=== PATIENT | male | born 1965 | race Caucasian/White ===

== ENCOUNTER → 2019-09-11 14:17 | Outpatient (BNVA) | payer MEDICARE, MEDICAID, SELFPAY | PROVIDERS: Family Provider Family Medicine; PCP Family Medicine; Visit Provider Family Medicine | DX: Z13.1 Encounter for screening for diabetes mellitus (principal); Z13.220 Encounter for screening for lipoid disorders; Z13.6 Encounter for screening for cardiovascular disorders; R06.02 Shortness of breath; G89.4 Chronic pain syndrome; J30.9 Allergic rhinitis, unspecified; F32.9 Major depressive disorder, single episode, unspecified; K21.9 Gastro-esophageal reflux disease without esophagitis; B37.81 Candidal esophagitis | CPT/HCPCS: 71046; 80048; 80061; 85025 ==

== ENCOUNTER → 2019-09-29 15:04 | Outpatient (BNVA) | payer MEDICARE, MEDICAID, SELFPAY | PROVIDERS: Family Provider Family Medicine; PCP Family Medicine; Visit Provider Nurse Practitioner | DX: G89.4 Chronic pain syndrome (principal); M54.2 Cervicalgia; F17.210 Nicotine dependence, cigarettes, uncomplicated; Z79.891 Long term (current) use of opiate analgesic; Z71.6 Tobacco abuse counseling | CPT/HCPCS: 99213; 99214 ==

== ENCOUNTER 2019-12-14 21:40 | Emergency (ER) | payer MEDICARE, MEDICAID, SELFPAY ==
[2019-12-14] VITALS (20 sets, daily range): BP systolic 105–148; BP diastolic 66–102; PULSE 78–87; RESP 14–20; TEMP 36.2; O2SAT 94–98; BMI 24.7
--- NOTE | 2019-12-14 21:59 | US_ITS ---
WS: [id number] SCROTAL ULTRASOUND REASON FOR EXAM: Testicular pain COMPARISON: None available. TECHNIQUE: Grayscale and duplex color Doppler ultrasound examination of the scrotum. FINDINGS: RIGHT: Right testes measures 3.5 cm x 1.4 cm x 2.1 cm. Right epididymis measures 0.9 cm , LEFT: Left testes measures 3.8 cm x 1.6 cm x 2.0 cm. Left epididymis measures 0.9 cm . Both inguinal canals were evaluated showed no bowel in the canals and no hernias. US/US scrotum [id number] IMPRESSION: Negative testicular ultrasound study.
--- NOTE | 2019-12-14 22:01 | CTR_ITS ---
PROCEDURE INFORMATION: Exam: CT Abdomen And Pelvis Without Contrast Exam date and time: 12/14/2019 10:01 PM Age: 54 years old Clinical indication: Abdominal pain; Flank; Right; Prior surgery; Patient HX: RT low abd pain, hole in abd where hernia mesh was placed in 2002; Additional info: Flank/abdominal pain TECHNIQUE: Imaging protocol: Computed tomography of the abdomen and pelvis without contrast. Sagittal and coronal reformatted images were created and reviewed. Radiation optimization: All CT scans at this facility use at least one of these dose optimization techniques: automated exposure control; mA and/or kV adjustment per patient size (includes targeted exams where dose is matched to clinical indication); or iterative reconstruction. COMPARISON: CT abdomen pelvis w con* [id number] 02/07/2016 12:02 PM RADIATION DOSE METRICS: Total DLP: 1106.74 mGy-cm FINDINGS: Limitations: Evaluation of solid organs and vasculature is limited without intravenous contrast. Heart: Visualized portions of the heart are unremarkable. Lungs: [id number] centrilobular and mild paraseptal emphysematous changes in the visualized lower lungs. Findings are stable. There is linear scarring in the right lower lobe. Pleural space: No pleural effusion. Liver: Diffuse, moderately decreased density in the liver. Findings are consistent with moderate fatty infiltration. Gallbladder and bile ducts: The patient has had an interval cholecystectomy. No biliary ductal dilatation. Pancreas: The pancreas is unremarkable. No pancreatic ductal dilatation. Spleen: Stable calcified granuloma in the spleen. Adrenals: The right and left adrenal glands are unremarkable. Kidneys and ureters: The right and left kidneys are unremarkable. The right and left ureters are unremarkable. Stomach and bowel: Fatty infiltration of the wall of the the terminal ileum and virtually the entire colon. Findings are stable and suggest suggest sequela of chronic inflammation. Fluid within the small bowel without evidence of mesenteric lymphadenopathy or bowel wall thickening. Appendix: The appendix is visualized and is unremarkable. No findings to suggest acute appendicitis. Intraperitoneal space: No free intraperitoneal air. No ascites. No loculated fluid collections to suggest an abscess. Vasculature: Stable mild atherosclerotic calcifications in the visualized arteries. No evidence for aortic aneurysm. Lymph nodes: No lymphadenopathy. Bladder: The bladder is incompletely filled, which can limit evaluation. No focal abnormality in the bladder however. Reproductive: Unremarkable as visualized. Bones/joints: Mild degenerative changes in the visualized spine. Soft tissues: No acute abnormality in the extra-abdominal soft tissues. No evidence for a hernia. CT/CT kidney stone [id number] IMPRESSION: 1. Fluid within the small bowel without evidence of mesenteric lymphadenopathy or bowel wall thickening. This may reflect viral gastroenteritis in the appropriate clinical situation. 2. Moderate fatty infiltration of the liver. 3. The patient has had an interval cholecystectomy. 4. Incidental/nonacute findings are listed in the report. Radiation Dose CTDIVOL = (mGy): DLP = 1106.74 (mGy-cm)
--- NOTE | 2019-12-14 22:02 | ED_ITS ---
HPI - Abdominal Pain General: Chief Complaint: Abdominal Pain Stated Complaint: abd pain Time Seen by Provider: 12/14/19 21:52 History of Present Illness: HPI narrative: Aditya is a nice 54-year-old male who comes in complaining of right inguinal and testicular pain. The pain is been intermittent for the past 3 days but worsening. He denies any fevers or chills. Denies any nausea or vomiting. He denies any dysuria or hematuria. He states that he had hernia repair in 2002 and previously he had felt an area of scar tissue in the area involved but now he does not feel it and that is the area that is tender. He is unaware of anything that makes his pain better or worse. He states that he has had kidney stones in the past but they did not feel exactly like this. Associated Symptoms: Denies chills, coffee ground emesis, constipation, GI cramping, diarrhea, dysuria, fever(s), hematochezia, hematuria, hematemesis, melena, nausea, syncope and vomiting Review of Systems General: Reports: other (negative unless marked) Const: Denies: fever, chills, body aches, fatigue, malaise or diaphoresis Eyes: Denies: change in vision or blurry vision ENMT: Denies: throat pain, painful swallowing, hoarseness, ear pain, ear discharge, Change in hearing or nasal discharge Card: Denies: chest pain, palpitations, irregular heart rhythm, syncope, pre- syncope, shortness of breath on exertion or shortness of breath when lying down Resp: Denies: shortness of breath, productive cough, non-productive cough, wheezing, coughing up blood or chest congestion GI: Reports: abdominal pain; Denies: nausea, vomiting, vomiting blood, coffee grounds in vomit, diarrhea, constipation, cramping, blood in stool or black tarry stool : Denies: flank pain, difficulty urinating, painful urination, urinary frequency, urinary urgency, decreased urine ouput, urinary incontinence or blood in urine Musc: Denies: neck pain, back pain, extremity pain, extremity swelling, joint pain, joint swelling, joint warmth or joint stiffness Skin/Breast: Denies: rash, skin tenderness or yellow skin Neuro: Denies: headache, numbness in extremities, weakness in extremities, changes in sensation, lack of coordination, difficulty walking, dizziness, vertigo or confusion Endo: Denies: excessive thirst, tired all the time, cold intolerance, excessive sweating, flushing or hot flashes Tony/Lymph: Denies: easy bruising, easy bleeding, petechiae or enlarged lymph nodes All/Imm: Denies: hives, throat swelling, tongue swelling, facial swelling or acute wheezing PFSH ED PFSH: Medical History Allergic rhinitis Chronic migraine Chronic pain syndrome DDD (degenerative disc disease) Cervical and Lumbar Depression Encounter for long-term opiate analgesic use GERD without esophagitis Kidney stones Lumbar herniated disc Opioid contract exists Smoker SOB (shortness of breath) Surgical History H/O cervical discectomy H/O foot surgery H/O neck surgery Hx of cholecystectomy Hx of hernia repair using mesh Family History Mother Hypertension Dementia Brother Hypertension Dementia Grandmother Hypertension Dementia Family/Other Dementia Social History Smoking and tobacco status: current every day smoker cigarettes [ Other cigarette details: 1.5 PPD ] Alcohol intake: current Alcohol intake frequency: holidays/special occasions only History of recent travel: No Current gender identity: Male Physical Exam Const: COMMON NORMALS: no apparent distress, oriented x3, no limitations, healthy appearing and well nourished EXAM LIMITATIONS: no altered mental status GENERAL APPEARANCE: cooperative, well kempt and well developed ORIENTATION/CONSCIOUSNESS: Yes awake HENMT: COMMON NORMALS: normocephalic, head/scalp atraumatic, hearing grossly normal bilaterally, external ears normal, EAC's normal, external nose normal and moist oral mucous membranes HEAD & SCALP: normal to inspection, normocephalic and atraumatic FACE & SINUS: normal facial exam and face symmetric NOSE: external nose normal and nares normal EXTERNAL EAR: Yes external ears normal EXTERNAL AUDITORY CANAL: EAC's normal MOUTH: oral and palatal mucosa normal and tongue normal Eye: COMMON NORMALS: PERRL, EOMs intact bilaterally, conjunctivae normal and no scleral icterus GENERAL EYE: normal appearance of both eyes and normal light reflex CONJUNCTIVA: Yes conjunctivae normal SCLERA: sclerae normal CORNEA: Yes corneas normal PUPIL: Yes PERRL DIRECT OPHTHALMOSCOPY: Yes normal light reflex Neck/C-Spine: COMMON NORMALS: full ROM, no lymphadenopathy, supple, no meningeal signs and no JVD GENERAL: Yes normal visual inspection and Yes trachea midline CERVICAL SPINE: Yes cervical ROM normal Chest: COMMONS NORMALS: inspection of chest normal and palpation of chest normal Resp: COMMON NORMALS: normal respiratory effort, no retractions, no use of accessory muscles and clear to auscultation bilaterally EFFORT & INSPECTION: Yes able to speak in complete sentences AUSCULTATION: clear to auscultation bilaterally Cardio: COMMON NORMALS: no JVD, regular rate, regular rhythm, S1 normal heart sound, S2 normal heart sound, no gallops, no clicks, no murmurs and no rub JUGULAR VENOUS DISTENTION: no JVD RATE: regular rate RHYTHM: regular rhythm HEART SOUNDS: S1 normal and S2 normal GI: COMMON NORMALS: soft to palpation, non-tender, no hepatosplenomegaly and no masses INSPECTION: Yes normal to inspection PALPATION: Yes soft and Yes no hepatosplenomegaly : COMMON NORMALS: Yes no CVA tenderness BLADDER/KIDNEY EXAM: Yes no CVA tenderness PENIS: normal penis and circumcised SCROTUM: Yes testes descended bilaterally, Yes cremasteric reflex present, No erythematous, No ecchymosis and No scrotal swelling TESTES: Yes testicular lie normal, No testicular tenderness, Yes epididymides normal, No epididymal mass and No epididymal tenderness OTHER: Right inguinal area without any swelling or hernia palpated Back/Pelvis: COMMON NORMALS: no CVA tenderness, thoracic and lumbar spine normal to inspection, no thoracic nor lumbar tenderness and thoraco-lumbar ROM normal Extremity: COMMON NORMALS: normal to inspection, full ROM, normal capillary refill, no joint enlargement, no clubbing, cyanosis or edema and no calf tenderness Neuro: COMMON NORMALS: oriented x3, CN's II-XII intact bilaterally, moves all extremities, no focal motor deficits and no sensory deficits noted MENINGEAL SIGNS: Yes no meningeal signs Psych: COMMON NORMALS: mental status grossly normal, thought process normal, cooperative, affect normal, speech normal and activity/motor behavior normal APPEARANCE: Yes well kempt SPEECH: Yes normal speech THOUGHT PROCESS: normal thought process Skin: COMMON NORMALS: no rashes or lesions noted, skin turgor normal, no jaundice, no petechiae and no mottling GENERAL SKIN EXAM: no rashes or lesions noted and turgor normal Course Vital Signs: Vital signs: Vital Signs Temperature 97.1 F L 12/14/19 21:46 Pulse Rate 87 12/14/19 21:46 Respiratory Rate 20 H 12/14/19 23:41 Blood Pressure 128/90 12/14/19 23:30 Pulse Oximetry 95 12/14/19 23:41 MDM - Abdominal Pain MDM Narrative: Medical decision making narrative: Mr. Dozier is a nice 54-year-old male who comes in complaining of mostly right inguinal pain. His appendix is normal by CT and there is no evidence of kidney stone. CT did suggest a gastroenteritis type picture which may be a possibility but does not fit clinically. There is no evidence of hernia by ultrasound or palpation nor on the CT. The patient's ultrasound revealed a normal testicle with no evidence of torsion or epididymitis. This time I will go ahead and place the patient on Cipro and Flagyl for a gastroenteritis and have him follow-up with surgery for a possible tear of his mesh. The patient agrees to follow-up for this. He understands that this could be something early and he will need to return if his symptoms change or worsen. At this time he is feeling good with normal labs and reassuring scans and ultrasound so I will discharge the patient home. He does understand he needs to return if his symptoms worsen but at this time he is feeling much better and would like to go home. Lab Data: Attestation: I reviewed the patient's lab results. Labs: Lab Results 12/14/19 12/14/19 12/14/19 Range/Units 22:00 22:00 22:10 WBC 9.5 (4.0-10.0) 10^3/ uL RBC 5.15 (4.1-5.3) 10^6/u L Hgb 16.5 (11.7-16.6) g/dL Hct 48.6 (42.0-52.0) % MCV 94.4 H (80-94) fL MCH 32.0 (28.0-34.0) pg MCHC 34.0 (30.0-36.0) g/dL RDW 13.2 (12.1-15.1) % Plt Count 243 (130-400) 10^3/c mm MPV 11.4 H (7.4-10.4) fL Neut % (Auto) 42.9 % Lymph % (Auto) 47.9 % Whitman % (Auto) 5.5 % Eos % (Auto) 2.0 % Baso % (Auto) 1.5 % Neut # (Auto) 4.1 (1.8-7.7) 10^3/u L Lymph # (Auto) 4.5 (0.8-4.8) 10^3/u L Whitman # (Auto) 0.5 (0.2-0.9) 10^3/u L Eos # (Auto) 0.2 (0.0-0.8) 10^3/u L Baso # (Auto) 0.1 (0.0-0.1) 10^3/u L Nucleated RBC % (a uto) 0 % Nucleated RBCs # 0.0 /100WBC Sodium 143 (136-145) mmol/L Potassium 4.0 (3.5-5.1) mmol/L Chloride 105 (98-107) mmol/L Carbon Dioxide 26 (22-29) mmol/L Anion Gap 16.0 (5-19) BUN 7 (6-20) mg/dL Creatinine 1.1 (0.7-1.2) mg/dL GFR Calculation 69.8 L (90-130) mL/min Glucose 104 (65-115) mg/dL Calculated Osmolal ity 292 (285-295) mOsm/k g Calcium 10.4 (8.5-10.5) mg/dL Magnesium 2.1 (1.7-2.3) mg/dL Total Bilirubin 0.3 (0.15-1.2) mg/dL AST 27 (0-40) U/L ALT 33 (0-41) U/L Alkaline Phosphata se 106 (40-130) IU/L Total Protein 7.6 (6.6-8.7) g/dL Albumin 4.8 (3.5-5.2) g/dL Globulin 2.8 (1.3-4.6) g/dL Lipase 52 (13-60) U/L Urine Color Yellow (Yellow) Urine Appearance Clear (CLEAR) Urine pH 5 (5-7) Ur Specific Gravit y 1.010 (1.005-1.030) Urine Protein Neg (Negative) Urine Glucose (UA) Norm (Normal) Urine Ketones Negative (Negative) Urine Blood Neg (Negative) Urine Nitrate Negative (Negative) Urine Bilirubin Neg (NEGATIVE) Urine Urobilinogen Norm (Negative) mg/dL Ur Leukocyte Macey ase Negative (Negative) Urine RBC Rare (0-2) /hpf Urine WBC Rare (0-5) /hpf Ur Squamous Epith Cells Rare (0-5) Urine Bacteria Trace (NONE) Discharge Plan Discharge Patient Disposition: Home, Self-Care Clinical Impression: Rt inguinal pain, Abdominal pain, Testicular pain Condition: Stable Prescriptions: New ciprofloxacin HCl [Cipro] 500 mg tablet 500 mg PO BID Qty: 20 RF: 0 metronidazole [Flagyl] 500 mg tablet 500 mg PO Q8H 7 Days Qty: 21 RF: 0 No Action [id number] [Fioricet] 50-300-40 mg capsule 1 cap PO .COMPLEX PRNRF: 0 tizanidine 4 mg tablet 4 mg PO TID PRN (Reason: muscle spasticity) 30 Days Qty: 90 RF: 5 cyclobenzaprine 10 mg tablet 10 mg PO .at bedtime 30 Days Qty: 30 RF: 5 pantoprazole 40 mg tablet,delayed release (DR/EC) 40 mg PO DAILY 30 Days Qty: 30 RF: 5 montelukast 10 mg tablet 10 mg PO DAILY 30 Days Qty: 30 RF: 11 Zyrtec 10 mg capsule 10 mg PO DAILY 30 Days Qty: 30 RF: 11 celecoxib 200 mg capsule 200 mg PO DAILY 30 Days Qty: 30 RF: 5 amitriptyline 25 mg tablet 25 mg PO .at bedtime 30 Days Qty: 30 RF: 5 albuterol sulfate 90 mcg/actuation HFA aerosol inhaler 2 puff INHALATION Q6H 30 Days Qty: 18 RF: 5 hydrocodone-acetaminophen 10-325 mg tablet 1 tab PO TID PRN (Reason: pain) 30 Days Qty: 90 RF: 0 ibuprofen 200 mg tablet 200 mg PO ONCE PRNRF: 0 hydrocodone-acetaminophen 10-325 mg tablet 1 tab PO TID PRN (Reason: pain) 30 Days Qty: 90 RF: 0 Discharge Orders: Discharge Order (Routine); Ordered 12/14/19 Ordered By: Nola Rani Referrals: Henny Lara MD [Primary Care Provider] - 1-3 days Marcello Ayon MD [Physician] - 1-3 days Discharge Diet: Advance as tolerated Discharge Activity: Increase activity as tolerated Patient Instructions: Abdominal Pain (ED) Activity Restrictions/Additional Instructions: Please return to the ER immediately for any of the signs or symptoms listed on your discharge instruction sheets, worsening/changing of your symptoms, you are not getting better as quickly as expected, or for ANY other cause or concerns. Take the antibiotics as I have prescribed you. Stop your tizanidine until you are finished taking your Cipro. There may be a drug interaction with these medications so be certain to STOP YOUR TIZANIDINE UNTIL YOU HAVE FINISHED YOUR CIPRO. Return to the ER for increased pain, new onset of fever, new onset of vomiting, problems with your bowels, increased testicular pain, or for any other cause for concern. If you are still having pain after 12 hours return to the ER for recheck because developing appendicitis may be a cause for your pain. Coding Level of Care Code ED Web Content Editor for Sabino Fwd Exam Comprehensive
[2019-12-14 22:25] LABS: Basophils # 0.1 10^3/uL (0.0-0.1); Basophils % 1.5 %; Eosinophils # 0.2 10^3/uL (0.0-0.8); Hematocrit 48.6 % (42.0-52.0); Hemoglobin 16.5 g/dL (11.7-16.6); Lymphocytes # 4.5 10^3/uL (0.8-4.8); Lymphocytes % 47.9 %; Mean Corpuscular Volume 94.4 fL (80-94); Mean Platelet Volume 11.4 fL (7.4-10.4); Monocytes # 0.5 10^3/uL (0.2-0.9); Monocytes % 5.5 %; Neutrophils # 4.1 10^3/uL (1.8-7.7); Neutrophils % 42.9 %; Nucleated Red Blood Cells % 0 %; Platelet Count 243 10^3/cmm (130-400); Red Blood Count 5.15 10^6/uL (4.1-5.3); Red Cell Distribution Width 13.2 % (12.1-15.1); White Blood Count 9.5 10^3/uL (4.0-10.0)
[2019-12-14] MEDS: ondansetron 2 mg/ML SDV 2 mL 4 MG IVP (22:35)
[2019-12-14] MEDS: HYDROmorphone 1 mg/mL INJ 1 mL 0.5 MG IVP ×2 (22:36→23:41)
[2019-12-14] MEDS: sodium chloride 0.9% 1,000 ML 100 ML IV (22:37)
[2019-12-14 23:06] LABS: Bacteria Urine TRACE; Bilirubin Urine Neg (NEGATIVE); Blood Urine Neg (Negative); Glucose Urine UA Norm (Normal); Ketones Urine Negative (Negative); Leukocyte Esterase Urine Negative (Negative); Nitrate Urine Negative (Negative); Protein Urine Neg (Negative); RBC Urine RARE /hpf (0-2); Squamous Epithelial Cell Urine RARE (0-5); Urine Appearance Clear (CLEAR); Urine Color Yellow (Yellow); Urobilinogen Urine Norm (Negative); WBC Urine RARE /hpf (0-5); pH Urine 5 (5-7)
[2019-12-14 23:26] LABS: Alanine Aminotransferase 33 U/L (0-41); Albumin Level 4.8 g/dL (3.5-5.2); Alkaline Phosphatase 106 IU/L (40-130); Aspartate Amino Transferase 27 U/L (0-40); Blood Urea Nitrogen 7 mg/dL (6-20); Calcium 10.4 mg/dL (8.5-10.5); Carbon Dioxide 26 mmol/L (22-29); Chloride 105 mmol/L (98-107); Globulin 2.8 g/dL (1.3-4.6); Glomerular Filtration Rate 69.8 mL/min (90-130); Glucose 104 mg/dL (65-115); Lipase 52 U/L (13-60); Magnesium 2.1 mg/dL (1.7-2.3); Osmolality Calculated 292 mOsm/kg (285-295); Sodium 143 mmol/L (136-145); Total Bilirubin 0.3 mg/dL (0.15-1.2); Total Protein 7.6 g/dL (6.6-8.7)
[2019-12-14] MEDS: ciprofloxacin 500 mg Tablet PO (23:58)
[2019-12-14] MEDS: metroNIDAZOLE 500 MG Tablet PO (23:58)
== END 2019-12-15 00:01 | disposition home or self-care (01) ==
PROVIDERS: Emergency Provider Emergency Medicine; PCP Family Medicine
DX: N50.811 Right testicular pain (principal); R10.31 Right lower quadrant pain; F17.210 Nicotine dependence, cigarettes, uncomplicated
CPT/HCPCS: 12345; 74176; 76870; 80053; 81001; 83690; 83735; 85025; 96361; 96374; 96375; 96376; 99283; 99284; J1170; J2405; J7030

== ENCOUNTER → 2020-01-18 12:41 | Outpatient (BNVA) | payer MEDICARE, MEDICAID, SELFPAY | PROVIDERS: PCP Family Medicine; Visit Provider Anesthesiology Pain Medicine | DX: G89.4 Chronic pain syndrome (principal); M51.36 Other intervertebral disc degeneration, lumbar region; M79.18 Myalgia, other site; M54.2 Cervicalgia; F17.210 Nicotine dependence, cigarettes, uncomplicated; Z79.891 Long term (current) use of opiate analgesic | CPT/HCPCS: 20553; 99214; J1030; J3490 ==

== ENCOUNTER 2020-02-08 15:00 | Outpatient (CLI) | payer MEDICARE, MEDICAID, SELFPAY ==
--- NOTE | 2020-02-08 15:20 | MR_ITS ---
WS: [id number] MRI CERVICAL SPINE HISTORY: M51.36 Other intervertebral disc degeneration, lumbar region COMPARISON: 05/24/2017 Prior anterior cervical fusion with interbody spacer at C5-6 is stable. No acute fractures. Mild disc space narrowing and desiccation at C4-5 and C6-7. Signal within the cervical cord is normal. Visualized posterior fossa is unremarkable. Craniocervical junction, C1 and C2 relationship, odontoid process and soft tissues are normal. C2-C3: Normal. C3-C4: Small central disc protrusion with no cord contact or stenosis. C4-C5: Mild osteophytic ridging and a central disc protrusion. 2 mm retrolisthesis of C4 is unchanged . There is very mild encroachment upon the ventral thecal sac and foramen. 3 mm osteophytes from C4 p roject into the foramen contributing to the stenosis. Unchanged since the prior study. C5-C6: Very some minimal osteophytic ridging. No significant stenosis. C6-C7: Diffuse osteophytic ridging with a central disc protrusion. Mild central stenosis and bilatera l foraminal stenosis with mild facet joint arthritis. C7-T1: Very tiny central disc protrusion. Paraspinal soft tissue are normal. MR/MR cervical spin wo con* [id number] IMPRESSION: 1. No significant interval change in the cervical spine since 05/24/2017. 2. Prior anterior cervical fusion with interbody spacer at C5-6 is stable. 3. Mild central and bilateral foraminal stenosis at C4-5 and C6-7. 4. C4 retrolisthesis by 2 mm is unchanged. 5. Small central disc protrusions at C3-4, C4-5 and C6-7 and C7-T1.
== END 2020-02-08 15:01 | disposition home or self-care (01) ==
LOC: RADWPI 15:03
PROVIDERS: PCP Family Medicine; Visit Provider Anesthesiology Pain Medicine
DX: M51.36 Other intervertebral disc degeneration, lumbar region (principal); M43.22 Fusion of spine, cervical region; M48.02 Spinal stenosis, cervical region; M50.20 Other cervical disc displacement, unspecified cervical region
CPT/HCPCS: 72141

== ENCOUNTER → 2020-02-16 12:33 | Outpatient (BNVA) | payer MEDICARE, MEDICAID, SELFPAY | PROVIDERS: PCP Family Medicine; Visit Provider Anesthesiology Pain Medicine | DX: G89.4 Chronic pain syndrome (principal); M50.30 Other cervical disc degeneration, unspecified cervical region; M51.36 Other intervertebral disc degeneration, lumbar region; F17.210 Nicotine dependence, cigarettes, uncomplicated; Z79.891 Long term (current) use of opiate analgesic | CPT/HCPCS: 62321; 99213; 99214; J1100 ==

== ENCOUNTER → 2020-03-18 10:19 | Outpatient (BNVA) | payer MEDICARE, MEDICAID, SELFPAY | PROVIDERS: PCP Family Medicine; Visit Provider Anesthesiology Pain Medicine | DX: G89.4 Chronic pain syndrome (principal); M79.18 Myalgia, other site; M51.36 Other intervertebral disc degeneration, lumbar region; M48.02 Spinal stenosis, cervical region; Z79.891 Long term (current) use of opiate analgesic; F17.210 Nicotine dependence, cigarettes, uncomplicated | CPT/HCPCS: 20553; 99214; J1030; J3490 ==

== ENCOUNTER → 2020-04-11 08:30 | Outpatient (BNVA) | payer MEDICARE, MEDICAID, SELFPAY | PROVIDERS: PCP Family Medicine; Visit Provider Anesthesiology Pain Medicine | DX: G89.4 Chronic pain syndrome (principal); M54.2 Cervicalgia; G43.709 Chronic migraine without aura, not intractable, without status migrainosus; M51.36 Other intervertebral disc degeneration, lumbar region; F17.210 Nicotine dependence, cigarettes, uncomplicated; Z79.891 Long term (current) use of opiate analgesic | CPT/HCPCS: 99213 ==

== ENCOUNTER → 2020-05-13 10:19 | Outpatient (BNVA) | payer MEDICARE, MEDICAID, SELFPAY | PROVIDERS: PCP Family Medicine; Visit Provider Anesthesiology Pain Medicine | DX: G89.4 Chronic pain syndrome (principal); M51.36 Other intervertebral disc degeneration, lumbar region; M54.2 Cervicalgia; F17.210 Nicotine dependence, cigarettes, uncomplicated; Z79.891 Long term (current) use of opiate analgesic | CPT/HCPCS: 99213 ==

== ENCOUNTER → 2020-06-14 10:00 | Outpatient (BNVA) | payer MEDICARE, MEDICAID, SELFPAY | PROVIDERS: PCP Family Medicine; Visit Provider Anesthesiology Pain Medicine | DX: G89.29 Other chronic pain (principal); M54.2 Cervicalgia; M51.36 Other intervertebral disc degeneration, lumbar region; F17.210 Nicotine dependence, cigarettes, uncomplicated; Z79.891 Long term (current) use of opiate analgesic | CPT/HCPCS: 99213 ==

== ENCOUNTER → 2020-07-12 10:35 | Outpatient (BNVA) | payer MEDICARE, MEDICAID, SELFPAY | PROVIDERS: PCP Family Medicine; Visit Provider Anesthesiology Pain Medicine | DX: G89.4 Chronic pain syndrome (principal); M51.36 Other intervertebral disc degeneration, lumbar region; M79.18 Myalgia, other site; G43.709 Chronic migraine without aura, not intractable, without status migrainosus; M54.9 Dorsalgia, unspecified; M54.2 Cervicalgia; F17.210 Nicotine dependence, cigarettes, uncomplicated; Z79.891 Long term (current) use of opiate analgesic | CPT/HCPCS: 20553; 99213; 99214; J1030 ==

== ENCOUNTER → 2020-08-12 10:56 | Outpatient (BNVA) | payer MEDICARE, MEDICAID, SELFPAY | PROVIDERS: PCP Family Medicine; Visit Provider Anesthesiology Pain Medicine | DX: G89.4 Chronic pain syndrome (principal); M54.2 Cervicalgia; M51.36 Other intervertebral disc degeneration, lumbar region; M54.9 Dorsalgia, unspecified; F17.210 Nicotine dependence, cigarettes, uncomplicated; Z79.891 Long term (current) use of opiate analgesic | CPT/HCPCS: 99213 ==

== ENCOUNTER 2020-08-12 14:33 | Outpatient (CLI) | payer MEDICARE, MEDICAID, SELFPAY ==
[2020-08-12 14:52] LABS: Basophils # 0.1 10^3/uL (0.0-0.1); Basophils % 1.5 %; Eosinophils # 0.2 10^3/uL (0.0-0.8); Hematocrit 46.3 % (42.0-52.0); Hemoglobin 15.5 g/dL (11.7-16.6); Lymphocytes % 46.1 %; Mean Corpuscular HGB Conc 33.5 g/dL (30.0-36.0); Mean Corpuscular Hemoglobin 31.8 pg (28.0-34.0); Mean Corpuscular Volume 94.9 fL (80-94); Mean Platelet Volume 11.6 fL (7.4-10.4); Monocytes # 0.6 10^3/uL (0.2-0.9); Monocytes % 6.4 %; Neutrophils # 3.78 10^3/uL (1.8-7.7); Neutrophils % 43.8 %; Nucleated Red Blood Cells % 0 %; Platelet Count 217 10^3/cmm (130-400); Red Blood Count 4.88 10^6/uL (4.1-5.3); Red Cell Distribution Width 12.9 % (12.1-15.1); White Blood Count 8.6 10^3/uL (4.0-10.0)
[2020-08-12 15:16] LABS: Alanine Aminotransferase 40 U/L (0-41); Albumin Level 4.3 g/dL (3.5-5.2); Alkaline Phosphatase 81 IU/L (40-130); Anion Gap 12.6 (5-19); Aspartate Amino Transferase 22 U/L (0-40); Blood Urea Nitrogen 14 mg/dL (6-20); Calcium 9.7 mg/dL (8.5-10.5); Carbon Dioxide 29 mmol/L (22-29); Chloride 103 mmol/L (98-107); Globulin 2.7 g/dL (1.3-4.6); Glomerular Filtration Rate 69.8 mL/min (90-130); Glucose 92 mg/dL (65-115); Lipase 50 U/L (13-60); Osmolality Calculated 290 mOsm/kg (285-295); Potassium 4.6 mmol/L (3.5-5.1); Sodium 140 mmol/L (136-145); Total Bilirubin 0.4 mg/dL (0.15-1.2)
== END 2020-08-12 14:34 | disposition home or self-care (01) ==
LOC: LAB 14:39
PROVIDERS: PCP Family Medicine; Visit Provider Surgery
DX: R10.11 Right upper quadrant pain (principal)
CPT/HCPCS: 36415; 80053; 83690; 85025

== ENCOUNTER → 2020-09-13 10:30 | Outpatient (BNVA) | payer MEDICARE, MEDICAID, SELFPAY | PROVIDERS: PCP Family Medicine; Visit Provider Anesthesiology Pain Medicine | DX: G89.4 Chronic pain syndrome (principal); M79.18 Myalgia, other site; M54.2 Cervicalgia; M51.36 Other intervertebral disc degeneration, lumbar region; M54.9 Dorsalgia, unspecified; F17.210 Nicotine dependence, cigarettes, uncomplicated; Z79.891 Long term (current) use of opiate analgesic | CPT/HCPCS: 20553; 99214; J1030; J3490 ==

== ENCOUNTER → 2020-10-01 13:13 | Outpatient (BNVA) | payer MEDICARE, MEDICAID, SELFPAY | PROVIDERS: PCP Family Medicine; Visit Provider Anesthesiology Pain Medicine | DX: G89.29 Other chronic pain (principal); M54.2 Cervicalgia; F17.210 Nicotine dependence, cigarettes, uncomplicated; Z79.891 Long term (current) use of opiate analgesic | CPT/HCPCS: 62321; J1100 ==

== ENCOUNTER → 2020-10-10 13:53 | Outpatient (BNVA) | payer MEDICARE, MEDICAID, SELFPAY | PROVIDERS: PCP Family Medicine; Visit Provider Anesthesiology Pain Medicine | DX: G89.4 Chronic pain syndrome (principal); M54.2 Cervicalgia; M54.9 Dorsalgia, unspecified; M51.36 Other intervertebral disc degeneration, lumbar region; F17.210 Nicotine dependence, cigarettes, uncomplicated; Z79.891 Long term (current) use of opiate analgesic | CPT/HCPCS: 99213; 99214 ==

== ENCOUNTER → 2020-11-07 13:36 | Outpatient (BNVA) | payer MEDICARE, MEDICAID, SELFPAY | PROVIDERS: PCP Family Medicine; Visit Provider Anesthesiology Pain Medicine | DX: G89.4 Chronic pain syndrome (principal); M54.2 Cervicalgia; M51.36 Other intervertebral disc degeneration, lumbar region; M54.9 Dorsalgia, unspecified; F17.210 Nicotine dependence, cigarettes, uncomplicated; Z79.891 Long term (current) use of opiate analgesic | CPT/HCPCS: 99214 ==

== ENCOUNTER → 2020-12-12 14:14 | Outpatient (BNVA) | payer MEDICARE, MEDICAID, SELFPAY | PROVIDERS: PCP Family Medicine; Visit Provider Anesthesiology Pain Medicine | DX: G89.4 Chronic pain syndrome (principal); M54.2 Cervicalgia; M79.18 Myalgia, other site; M54.9 Dorsalgia, unspecified; M51.36 Other intervertebral disc degeneration, lumbar region; F17.210 Nicotine dependence, cigarettes, uncomplicated; Z79.891 Long term (current) use of opiate analgesic; Z79.899 Other long term (current) drug therapy | CPT/HCPCS: 20553; 99214; J1030; J3490 ==

== ENCOUNTER → 2021-01-09 14:28 | Outpatient (BNVA) | payer MEDICARE, MEDICAID, SELFPAY | PROVIDERS: PCP Family Medicine; Visit Provider Anesthesiology Pain Medicine | DX: G89.4 Chronic pain syndrome (principal); M54.2 Cervicalgia; M51.36 Other intervertebral disc degeneration, lumbar region; M54.9 Dorsalgia, unspecified; F17.210 Nicotine dependence, cigarettes, uncomplicated; Z79.891 Long term (current) use of opiate analgesic | CPT/HCPCS: 99214 ==

== ENCOUNTER → 2021-02-06 14:06 | Outpatient (BNVA) | payer MEDICARE, MEDICAID, SELFPAY | PROVIDERS: PCP Family Medicine; Visit Provider Anesthesiology Pain Medicine | DX: G89.4 Chronic pain syndrome (principal); M79.18 Myalgia, other site; M54.2 Cervicalgia; F17.210 Nicotine dependence, cigarettes, uncomplicated; Z79.891 Long term (current) use of opiate analgesic | CPT/HCPCS: 20553; 99213; 99214; J1030; J3490 ==

== ENCOUNTER → 2021-03-06 14:36 | Outpatient (BNVA) | payer MEDICARE, MEDICAID, SELFPAY | PROVIDERS: PCP Family Medicine; Visit Provider Anesthesiology Pain Medicine | DX: G89.29 Other chronic pain (principal); M54.2 Cervicalgia; M51.36 Other intervertebral disc degeneration, lumbar region; F17.210 Nicotine dependence, cigarettes, uncomplicated; Z79.891 Long term (current) use of opiate analgesic | CPT/HCPCS: 99213; 99214 ==

== ENCOUNTER → 2021-03-20 14:15 | Outpatient (BNVA) | payer MEDICARE, MEDICAID, SELFPAY | PROVIDERS: PCP Family Medicine; Visit Provider Anesthesiology Pain Medicine | DX: G89.4 Chronic pain syndrome (principal); M79.18 Myalgia, other site; M54.2 Cervicalgia; M51.36 Other intervertebral disc degeneration, lumbar region; F17.200 Nicotine dependence, unspecified, uncomplicated; Z79.891 Long term (current) use of opiate analgesic | CPT/HCPCS: 20553; 99213; J1030; J3490 ==

== ENCOUNTER → 2021-05-08 14:36 | Outpatient (BNVA) | payer MEDICARE, MEDICAID, SELFPAY | PROVIDERS: PCP Family Medicine; Visit Provider Anesthesiology Pain Medicine | DX: G89.29 Other chronic pain (principal); M54.2 Cervicalgia; M51.36 Other intervertebral disc degeneration, lumbar region; F17.210 Nicotine dependence, cigarettes, uncomplicated; Z79.891 Long term (current) use of opiate analgesic | CPT/HCPCS: 99213; 99214 ==

== ENCOUNTER → 2021-05-21 17:54 | Outpatient (BNVA) | payer MEDICARE, MEDICAID, SELFPAY | PROVIDERS: PCP Family Medicine; Visit Provider Family Medicine | DX: G89.4 Chronic pain syndrome (principal); J30.89 Other allergic rhinitis; M51.36 Other intervertebral disc degeneration, lumbar region; K21.9 Gastro-esophageal reflux disease without esophagitis; J30.9 Allergic rhinitis, unspecified; N52.9 Male erectile dysfunction, unspecified; J44.9 Chronic obstructive pulmonary disease, unspecified; Z13.1 Encounter for screening for diabetes mellitus; Z13.6 Encounter for screening for cardiovascular disorders; G43.709 Chronic migraine without aura, not intractable, without status migrainosus; F33.0 Major depressive disorder, recurrent, mild; N52.01 Erectile dysfunction due to arterial insufficiency | CPT/HCPCS: 80053; 80061; 85025 ==

== ENCOUNTER → 2021-06-05 14:40 | Outpatient (BNVA) | payer MEDICARE, MEDICAID, SELFPAY | PROVIDERS: PCP Family Medicine; Visit Provider Anesthesiology Pain Medicine | DX: G89.4 Chronic pain syndrome (principal); M79.18 Myalgia, other site; M54.2 Cervicalgia; M51.36 Other intervertebral disc degeneration, lumbar region; F17.200 Nicotine dependence, unspecified, uncomplicated; Z79.891 Long term (current) use of opiate analgesic | CPT/HCPCS: 20553; 99214; J1030; J3490 ==

== ENCOUNTER → 2021-06-26 13:21 | Outpatient (BNVA) | payer MEDICARE, MEDICAID, SELFPAY | PROVIDERS: PCP Family Medicine; Visit Provider Anesthesiology Pain Medicine | DX: G89.4 Chronic pain syndrome (principal); M54.2 Cervicalgia; M51.36 Other intervertebral disc degeneration, lumbar region; F17.200 Nicotine dependence, unspecified, uncomplicated; Z79.891 Long term (current) use of opiate analgesic | CPT/HCPCS: 99214 ==

== ENCOUNTER → 2021-07-24 13:03 | Outpatient (BNVA) | payer MEDICARE, MEDICAID, SELFPAY | PROVIDERS: PCP Family Medicine; Visit Provider Anesthesiology Pain Medicine | DX: G89.4 Chronic pain syndrome (principal); M54.2 Cervicalgia; M51.36 Other intervertebral disc degeneration, lumbar region; M25.511 Pain in right shoulder; M25.512 Pain in left shoulder; G43.709 Chronic migraine without aura, not intractable, without status migrainosus; F17.200 Nicotine dependence, unspecified, uncomplicated; Z79.891 Long term (current) use of opiate analgesic | CPT/HCPCS: 99214 ==

== ENCOUNTER → 2021-08-21 13:35 | Outpatient (BNVA) | payer MEDICARE, MEDICAID, SELFPAY | PROVIDERS: PCP Family Medicine; Visit Provider Anesthesiology Pain Medicine | DX: G89.4 Chronic pain syndrome (principal); M79.18 Myalgia, other site; M54.2 Cervicalgia; M51.36 Other intervertebral disc degeneration, lumbar region; F17.200 Nicotine dependence, unspecified, uncomplicated; Z79.891 Long term (current) use of opiate analgesic; Z71.6 Tobacco abuse counseling | CPT/HCPCS: 20553; 99214; J1030; J3490 ==

== ENCOUNTER → 2021-09-17 11:03 | Outpatient (BNVA) | payer MEDICARE, MEDICAID, SELFPAY | PROVIDERS: PCP Family Medicine; Visit Provider Anesthesiology Pain Medicine | DX: G89.4 Chronic pain syndrome (principal); M54.2 Cervicalgia; M51.36 Other intervertebral disc degeneration, lumbar region; M25.511 Pain in right shoulder; M25.512 Pain in left shoulder; F17.210 Nicotine dependence, cigarettes, uncomplicated; Z79.891 Long term (current) use of opiate analgesic; Z71.6 Tobacco abuse counseling | CPT/HCPCS: 99214 ==

== ENCOUNTER → 2021-10-16 12:54 | Outpatient (BNVA) | payer MEDICARE, MEDICAID, SELFPAY | PROVIDERS: PCP Family Medicine; Visit Provider Anesthesiology Pain Medicine | DX: G89.4 Chronic pain syndrome (principal); M79.18 Myalgia, other site; M51.36 Other intervertebral disc degeneration, lumbar region; M54.2 Cervicalgia; F17.210 Nicotine dependence, cigarettes, uncomplicated; Z79.891 Long term (current) use of opiate analgesic | CPT/HCPCS: 20553; 99214; J1030; J3490 ==

== ENCOUNTER → 2021-11-13 12:55 | Outpatient (BNVA) | payer MEDICARE, MEDICAID, SELFPAY | PROVIDERS: PCP Family Medicine; Visit Provider Anesthesiology Pain Medicine | DX: G89.4 Chronic pain syndrome (principal); M51.36 Other intervertebral disc degeneration, lumbar region; M54.2 Cervicalgia; F17.210 Nicotine dependence, cigarettes, uncomplicated; Z79.891 Long term (current) use of opiate analgesic | CPT/HCPCS: 99214 ==

== ENCOUNTER → 2021-11-24 14:16 | Outpatient (BNVA) | payer MEDICARE, MEDICAID, SELFPAY | PROVIDERS: PCP Family Medicine; Visit Provider Anesthesiology Pain Medicine | DX: Z79.891 Long term (current) use of opiate analgesic (principal); F17.210 Nicotine dependence, cigarettes, uncomplicated; M54.12 Radiculopathy, cervical region | CPT/HCPCS: 62321; J1100 ==

== ENCOUNTER → 2021-12-11 13:09 | Outpatient (BNVA) | payer MEDICARE, MEDICAID, SELFPAY | PROVIDERS: PCP Family Medicine; Visit Provider Anesthesiology Pain Medicine | DX: G89.4 Chronic pain syndrome (principal); M54.2 Cervicalgia; M51.36 Other intervertebral disc degeneration, lumbar region; F17.210 Nicotine dependence, cigarettes, uncomplicated; Z79.891 Long term (current) use of opiate analgesic | CPT/HCPCS: 99214 ==

== ENCOUNTER → 2022-01-22 12:56 | Outpatient (BNVA) | payer MEDICARE, MEDICAID, SELFPAY | PROVIDERS: PCP Family Medicine; Visit Provider Anesthesiology Pain Medicine | DX: G89.4 Chronic pain syndrome (principal); M51.36 Other intervertebral disc degeneration, lumbar region; M54.2 Cervicalgia; F17.210 Nicotine dependence, cigarettes, uncomplicated; Z79.891 Long term (current) use of opiate analgesic; Z71.6 Tobacco abuse counseling | CPT/HCPCS: 99214 ==

== ENCOUNTER → 2022-02-19 13:33 | Outpatient (BNVA) | payer MEDICARE, MEDICAID, SELFPAY | PROVIDERS: PCP Family Medicine; Visit Provider Anesthesiology Pain Medicine | DX: G89.4 Chronic pain syndrome (principal); M54.2 Cervicalgia; M51.36 Other intervertebral disc degeneration, lumbar region; M79.601 Pain in right arm; M79.602 Pain in left arm; F17.210 Nicotine dependence, cigarettes, uncomplicated; Z79.891 Long term (current) use of opiate analgesic; M79.18 Myalgia, other site | CPT/HCPCS: 20553; 99213; J1030 ==

== ENCOUNTER → 2022-03-26 13:27 | Outpatient (BNVA) | payer MEDICARE, MEDICAID, SELFPAY | PROVIDERS: PCP Family Medicine; Visit Provider Anesthesiology Pain Medicine | DX: M79.601 Pain in right arm (principal); M79.602 Pain in left arm; F17.210 Nicotine dependence, cigarettes, uncomplicated; G89.4 Chronic pain syndrome; M51.36 Other intervertebral disc degeneration, lumbar region; M54.2 Cervicalgia; Z79.891 Long term (current) use of opiate analgesic | CPT/HCPCS: 99214 ==

== ENCOUNTER → 2022-03-31 09:20 | Outpatient (BNVA) | payer MEDICARE, MEDICAID, SELFPAY | PROVIDERS: PCP Family Medicine; Visit Provider Anesthesiology Pain Medicine | DX: F17.210 Nicotine dependence, cigarettes, uncomplicated (principal); M79.18 Myalgia, other site; M54.2 Cervicalgia | CPT/HCPCS: 20553; 99212; J1030; J3490 ==

== ENCOUNTER → 2022-05-18 13:40 | Outpatient (BNVA) | payer MEDICARE, MEDICAID, SELFPAY | PROVIDERS: PCP Family Medicine; Visit Provider Family Medicine | DX: F32.9 Major depressive disorder, single episode, unspecified (principal); G89.4 Chronic pain syndrome; J30.89 Other allergic rhinitis; J30.9 Allergic rhinitis, unspecified; K21.9 Gastro-esophageal reflux disease without esophagitis; Z13.1 Encounter for screening for diabetes mellitus; N52.01 Erectile dysfunction due to arterial insufficiency; Z13.220 Encounter for screening for lipoid disorders; Z13.6 Encounter for screening for cardiovascular disorders; N52.9 Male erectile dysfunction, unspecified; M51.36 Other intervertebral disc degeneration, lumbar region; R06.02 Shortness of breath | CPT/HCPCS: 80053; 80061 ==

== ENCOUNTER → 2022-05-28 13:33 | Outpatient (BNVA) | payer MEDICARE, MEDICAID, SELFPAY | PROVIDERS: PCP Family Medicine; Visit Provider Anesthesiology Pain Medicine | DX: G89.4 Chronic pain syndrome (principal); M54.2 Cervicalgia; M51.36 Other intervertebral disc degeneration, lumbar region; M79.602 Pain in left arm; M79.601 Pain in right arm; F17.210 Nicotine dependence, cigarettes, uncomplicated; Z79.891 Long term (current) use of opiate analgesic | CPT/HCPCS: 99214 ==

== ENCOUNTER → 2022-06-16 10:38 | Outpatient (BNVA) | payer MEDICARE, MEDICAID, SELFPAY | PROVIDERS: PCP Family Medicine; Visit Provider Family Medicine | DX: M19.012 Primary osteoarthritis, left shoulder (principal) | CPT/HCPCS: 73030 ==

== ENCOUNTER → 2022-06-22 13:54 | Outpatient (BNVA) | payer MEDICARE, MEDICAID, SELFPAY | PROVIDERS: PCP Family Medicine; Visit Provider Anesthesiology Pain Medicine | DX: G89.4 Chronic pain syndrome (principal); M54.2 Cervicalgia; M51.36 Other intervertebral disc degeneration, lumbar region; M19.012 Primary osteoarthritis, left shoulder; F17.210 Nicotine dependence, cigarettes, uncomplicated | CPT/HCPCS: 99214 ==

== ENCOUNTER → 2022-07-23 13:51 | Outpatient (BNVA) | payer MEDICARE, MEDICAID, SELFPAY | PROVIDERS: PCP Family Medicine; Visit Provider Anesthesiology Pain Medicine | DX: G89.4 Chronic pain syndrome (principal); G43.709 Chronic migraine without aura, not intractable, without status migrainosus; M54.2 Cervicalgia; M51.36 Other intervertebral disc degeneration, lumbar region; M19.012 Primary osteoarthritis, left shoulder; F17.200 Nicotine dependence, unspecified, uncomplicated | CPT/HCPCS: 99214 ==

== ENCOUNTER → 2022-08-20 11:19 | Outpatient (BNVA) | payer MEDICARE, MEDICAID, SELFPAY | PROVIDERS: PCP Family Medicine; Visit Provider Anesthesiology Pain Medicine | DX: G89.4 Chronic pain syndrome (principal); M54.2 Cervicalgia; M51.36 Other intervertebral disc degeneration, lumbar region; M79.601 Pain in right arm; M79.602 Pain in left arm; F17.200 Nicotine dependence, unspecified, uncomplicated; M79.18 Myalgia, other site | CPT/HCPCS: 20553; 99214 ==

== ENCOUNTER → 2022-09-15 13:40 | Outpatient (BNVA) | payer MEDICARE, MEDICAID, SELFPAY | PROVIDERS: PCP Family Medicine; Visit Provider Anesthesiology Pain Medicine | DX: M54.12 Radiculopathy, cervical region (principal) | CPT/HCPCS: 62321 ==

== ENCOUNTER → 2022-09-30 10:28 | Outpatient (BNVA) | payer MEDICARE, MEDICAID, SELFPAY | PROVIDERS: PCP Family Medicine; Visit Provider Anesthesiology Pain Medicine | DX: G89.4 Chronic pain syndrome (principal); M54.2 Cervicalgia; M51.36 Other intervertebral disc degeneration, lumbar region; F17.200 Nicotine dependence, unspecified, uncomplicated | CPT/HCPCS: 99213 ==

== ENCOUNTER → 2022-10-28 10:11 | Outpatient (BNVA) | payer MEDICARE, MEDICAID, SELFPAY | PROVIDERS: PCP Family Medicine; Visit Provider Anesthesiology Pain Medicine | DX: G89.4 Chronic pain syndrome (principal); M54.2 Cervicalgia; M51.36 Other intervertebral disc degeneration, lumbar region; F17.200 Nicotine dependence, unspecified, uncomplicated | CPT/HCPCS: 99213 ==

== ENCOUNTER → 2022-11-24 09:59 | Outpatient (BNVA) | payer MEDICARE, MEDICAID, SELFPAY | PROVIDERS: PCP Family Medicine; Visit Provider Anesthesiology Pain Medicine | DX: G89.4 Chronic pain syndrome (principal); M51.36 Other intervertebral disc degeneration, lumbar region; M54.2 Cervicalgia; F17.200 Nicotine dependence, unspecified, uncomplicated | CPT/HCPCS: 99214 ==

== ENCOUNTER → 2023-01-18 10:58 | Outpatient (BNVA) | payer MEDICARE, MEDICAID, SELFPAY | PROVIDERS: PCP Family Medicine; Visit Provider Anesthesiology Pain Medicine | DX: G89.4 Chronic pain syndrome (principal); M79.18 Myalgia, other site; G43.709 Chronic migraine without aura, not intractable, without status migrainosus; M54.2 Cervicalgia; M51.36 Other intervertebral disc degeneration, lumbar region; F17.200 Nicotine dependence, unspecified, uncomplicated | CPT/HCPCS: 20553; 99214 ==

== ENCOUNTER → 2023-02-22 10:58 | Outpatient (BNVA) | payer MEDICARE, MEDICAID, SELFPAY | PROVIDERS: PCP Family Medicine; Visit Provider Anesthesiology Pain Medicine | DX: G89.4 Chronic pain syndrome (principal); M54.2 Cervicalgia; M51.36 Other intervertebral disc degeneration, lumbar region; F17.200 Nicotine dependence, unspecified, uncomplicated | CPT/HCPCS: 99213 ==

== ENCOUNTER → 2023-03-29 10:36 | Outpatient (BNVA) | payer MEDICARE, MEDICAID, SELFPAY | PROVIDERS: PCP Family Medicine; Visit Provider Anesthesiology Pain Medicine | DX: M51.36 Other intervertebral disc degeneration, lumbar region; G89.4 Chronic pain syndrome; F17.200 Nicotine dependence, unspecified, uncomplicated; M54.2 Cervicalgia | CPT/HCPCS: 99214 ==

== ENCOUNTER → 2023-04-14 10:12 | Outpatient (BNVA) | payer MEDICARE, MEDICAID, SELFPAY | PROVIDERS: PCP Family Medicine; Visit Provider Anesthesiology Pain Medicine | DX: M79.18 Myalgia, other site (principal); M54.2 Cervicalgia; M51.36 Other intervertebral disc degeneration, lumbar region; G89.4 Chronic pain syndrome | CPT/HCPCS: 20553; 99213; J1030; J3490 ==

== ENCOUNTER → 2023-05-05 10:34 | Outpatient (BNVA) | payer MEDICARE, MEDICAID, SELFPAY | PROVIDERS: PCP Family Medicine; Visit Provider Family Medicine | DX: N52.01 Erectile dysfunction due to arterial insufficiency (principal); Z13.1 Encounter for screening for diabetes mellitus; Z13.220 Encounter for screening for lipoid disorders | CPT/HCPCS: 80053; 80061 ==

== ENCOUNTER → 2023-05-12 09:14 | Outpatient (BNVA) | payer MEDICARE, MEDICAID, SELFPAY | PROVIDERS: PCP Family Medicine; Visit Provider Anesthesiology Pain Medicine | DX: G89.4 Chronic pain syndrome (principal); M51.36 Other intervertebral disc degeneration, lumbar region; F17.200 Nicotine dependence, unspecified, uncomplicated; M48.02 Spinal stenosis, cervical region; M50.20 Other cervical disc displacement, unspecified cervical region | CPT/HCPCS: 99214 ==

== ENCOUNTER → 2023-07-15 09:54 | Outpatient (BNVA) | payer MEDICARE, MEDICAID, SELFPAY | PROVIDERS: PCP Family Medicine; Visit Provider Anesthesiology Pain Medicine | DX: G89.4 Chronic pain syndrome (principal); M51.36 Other intervertebral disc degeneration, lumbar region; F17.200 Nicotine dependence, unspecified, uncomplicated; M43.12 Spondylolisthesis, cervical region; M50.21 Other cervical disc displacement, high cervical region; M48.02 Spinal stenosis, cervical region | CPT/HCPCS: 99214 ==

== ENCOUNTER → 2023-07-26 14:51 | Outpatient (BNVA) | payer MEDICARE, MEDICAID, SELFPAY | PROVIDERS: PCP Family Medicine; Referring Provider Family Medicine; Visit Provider Family Medicine | DX: R19.7 Diarrhea, unspecified (principal) | CPT/HCPCS: 87493 ==

== ENCOUNTER → 2023-09-13 12:51 | Outpatient (BNVA) | payer MEDICARE, SELFPAY | PROVIDERS: PCP Family Medicine; Visit Provider Anesthesiology Pain Medicine | DX: M79.18 Myalgia, other site (principal); M51.36 Other intervertebral disc degeneration, lumbar region; G43.709 Chronic migraine without aura, not intractable, without status migrainosus; G89.4 Chronic pain syndrome; M48.02 Spinal stenosis, cervical region; M43.12 Spondylolisthesis, cervical region | CPT/HCPCS: 20553; 72050; 99214; J1030; J3490 ==

== ENCOUNTER → 2023-10-14 10:02 | Outpatient (BNVA) | payer MEDICARE, SELFPAY | PROVIDERS: PCP Family Medicine; Visit Provider Anesthesiology Pain Medicine | DX: G89.4 Chronic pain syndrome; M19.012 Primary osteoarthritis, left shoulder; M54.2 Cervicalgia; M51.36 Other intervertebral disc degeneration, lumbar region; F17.200 Nicotine dependence, unspecified, uncomplicated | CPT/HCPCS: 20610; 99214; J1030; J3490 ==

== ENCOUNTER → 2023-11-01 14:29 | Outpatient (BNVA) | payer MEDICAID, SELFPAY | PROVIDERS: PCP Family Medicine; Visit Provider Family Medicine | DX: M25.532 Pain in left wrist (principal) | CPT/HCPCS: 73110 ==

== ENCOUNTER → 2023-11-26 11:22 | Outpatient (BNVA) | payer MEDICAID, SELFPAY | PROVIDERS: PCP Family Medicine; Visit Provider Family Medicine | DX: M25.532 Pain in left wrist (principal) | CPT/HCPCS: 73110 ==

== ENCOUNTER → 2023-12-01 09:51 | Outpatient (BNVA) | payer MEDICAID, SELFPAY | PROVIDERS: PCP Family Medicine; Visit Provider Anesthesiology Pain Medicine | DX: G89.4 Chronic pain syndrome (principal); G43.709 Chronic migraine without aura, not intractable, without status migrainosus; M51.36 Other intervertebral disc degeneration, lumbar region; M54.2 Cervicalgia; F17.200 Nicotine dependence, unspecified, uncomplicated | CPT/HCPCS: 99214 ==

== ENCOUNTER → 2023-12-09 10:33 | Outpatient (BNVA) | payer MEDICARE, SELFPAY | PROVIDERS: PCP Family Medicine; Visit Provider Anesthesiology Pain Medicine | DX: M51.36 Other intervertebral disc degeneration, lumbar region; G89.4 Chronic pain syndrome; F17.200 Nicotine dependence, unspecified, uncomplicated; M43.12 Spondylolisthesis, cervical region | CPT/HCPCS: 99214 ==

== ENCOUNTER → 2024-01-10 13:38 | Outpatient (BNVA) | payer MEDICARE, SELFPAY | PROVIDERS: PCP Family Medicine; Visit Provider Anesthesiology Pain Medicine | DX: M79.18 Myalgia, other site (principal); M54.9 Dorsalgia, unspecified; M54.2 Cervicalgia; M51.36 Other intervertebral disc degeneration, lumbar region; G89.4 Chronic pain syndrome; F17.200 Nicotine dependence, unspecified, uncomplicated | CPT/HCPCS: 20553; 99214; J1010; J3490 ==

== ENCOUNTER → 2024-01-27 10:22 | Outpatient (BNVA) | payer MEDICARE, SELFPAY | PROVIDERS: PCP Family Medicine; Visit Provider Anesthesiology Pain Medicine | DX: G89.4 Chronic pain syndrome (principal); M51.36 Other intervertebral disc degeneration, lumbar region; F17.200 Nicotine dependence, unspecified, uncomplicated; M43.12 Spondylolisthesis, cervical region | CPT/HCPCS: 99214 ==

== ENCOUNTER → 2024-02-01 14:55 | Outpatient (BNVA) | payer MEDICARE, SELFPAY | PROVIDERS: PCP Family Medicine; Referring Provider Family Medicine; Visit Provider Student in an Organized Health Care Education/Training Program | DX: M25.532 Pain in left wrist (principal); S46.002A Unspecified injury of muscle(s) and tendon(s) of the rotator cuff of left shoulder, initial encounter; X58.XXXA Exposure to other specified factors, initial encounter; M25.512 Pain in left shoulder | CPT/HCPCS: 73030; 73110; 99204 ==

== ENCOUNTER 2024-02-15 13:33 | Outpatient (CLI) | payer MEDICARE, MEDICAID, SELFPAY ==
--- NOTE | 2024-02-15 13:45 | MR_ITS ---
WS: [id number] MRI LEFT SHOULDER NONCONTRAST TECHNIQUE: Sagittal T2, coronal T1, T2 and proton density imaging. Axial gradient PDE imaging. CLINICAL INFORMATION: left shoulder pain/rule out rotator cuff tear COMPARISON: None. FINDINGS: Moderate degenerative arthritis AC joint with slight subacromial spurring. Subacromial and subdeltoid fluid. Impingement on the distal supraspinatus. High-grade intrasubstance and undersurface tear dist al supraspinatus with chronic thinning. No tendon retraction. Intrasubstance with bursal surface and undersurface tears involving the distal infraspinatus extending to the insertion. Associated tendinop athy. No tendon retraction. Normal teres minor. Subscapularis appears intact. Moderate degenerative narrowing glenohumeral articu lation. Biceps tendon appears intact within the bicipital groove. Tendinopathy intra-articular biceps tendon which appears intact. Normal bone marrow signal in the humeral head and glenoid. MR/MR shoulder LT wo con* [id number] IMPRESSION: 1. Moderate degenerative arthritis AC joint with slight subacromial spurring. Subacromial and subdeltoid fluid. 2. High-grade intrasubstance and undersurface tears distal supraspinatus with chronic thinning. No tendon retraction 3. Intrasubstance with bursal surface and undersurface tears involving the dis abbey infraspinatus extending to the insertion. Associated tendinopathy. 4. Biceps tendon appears intact within the bicipital groove. 5. Tendinopathy intra-articular biceps tendon.
== END 2024-02-15 13:34 | disposition home or self-care (01) ==
LOC: RAD 13:34
PROVIDERS: PCP Family Medicine; Visit Provider Student in an Organized Health Care Education/Training Program
DX: M75.121 Complete rotator cuff tear or rupture of right shoulder, not specified as traumatic (principal); M75.22 Bicipital tendinitis, left shoulder; M19.012 Primary osteoarthritis, left shoulder
CPT/HCPCS: 73221

== ENCOUNTER → 2024-02-22 13:15 | Outpatient (BNVA) | payer MEDICARE, MEDICAID, SELFPAY | PROVIDERS: PCP Family Medicine; Visit Provider Student in an Organized Health Care Education/Training Program | DX: M75.102 Unspecified rotator cuff tear or rupture of left shoulder, not specified as traumatic (principal); M75.42 Impingement syndrome of left shoulder; M75.22 Bicipital tendinitis, left shoulder; M19.012 Primary osteoarthritis, left shoulder | CPT/HCPCS: 99214 ==

== ENCOUNTER 2024-04-12 08:17 | Day surgery (SDC) | payer MEDICARE, SELFPAY ==
[2024-04-12] VITALS (17 sets, daily range): BP systolic 110–163; BP diastolic 70–98; PULSE 66–91; RESP 14–23; TEMP 36.1–36.6; O2SAT 90–97; BMI 25.8
[2024-04-12] MEDS: scopolamine 1.5 Patch 1 PATCH TRANSDERMA (08:43)
[2024-04-12] MEDS: acetaminophen 1,000 MG/100 ML PIGGYBACK 400 MG IV (08:58)
[2024-04-12] MEDS: sodium chloride 0.9% 1,000 ML 30 ML IV (08:59)
--- NOTE | 2024-04-12 09:11 | W.PM.OPSFHP ---
Same Day Surgery H&P Indication for Procedure/HPI DATE OF PROCEDURE: April 12, 2024 CHIEF COMPLAINT/INDICATIONFOR SURGICAL PROCEDURE: Left shoulder rotator cuff tear, AC joint arthritis, subacromial impingement, biceps tendinitis PREOP DIAGNOSIS: Left shoulder rotator cuff tear, AC joint arthritis, subacromial impingemen PLANNED PROCEDURE: Operation Date: 04/12/24 09:55 Proposed Procedures p Shoulder Arthroscopy(Left) - Brendan Hopkins DO s Debridement versus Rotator Cuff Repair - Arthroscopy(Left) - Brendan Hopkins DO s AC Joint Resection(Left) - Brendan Hopkins DO s Subacromial Decompression(Left) - Brendan Hopkins DO s Bicep Tenodesis(Left) - Brenadn Hopkins DO Medications/Allergies* Home Medications Medication Instructions Recorded Confirmed Type multivit with [id number]-[id number]-omega 1 cap PO DAILY 10/08/20 04/11/24 History 3,6,9 no.3 400 mcg-300 mcg capsule Allergies/Adverse Reactions Allergy/AdvReac Type Severity Reaction Status Date / Time NSAIDS (Non-Steroidal Allergy acute Verified 03/02/24 14:03 Anti-Inflamma renal failure gabapentin AdvReac zonked Verified 03/02/24 14:03 out pregabalin [From Lyrica] AdvReac zonked Verified 03/02/24 14:03 out varenicline [From Chantix] AdvReac nightmares Verified 03/02/24 14:03 Current Medications: Generic Name Dose Route Start Last Admin Trade Name Freq PRN Reason Stop Dose Admin Sodium Chloride 1,000 mls @ 30 mls/hr 04/12/24 08:30 04/12/24 08:59 Sodium Chloride 0.9% IV 04/13/24 08:29 30 mls/hr .Q24H TERESO Administration Pertinent History/Comorbid Conditions* Medical History (Updated 03/27/24 @ 19:56 by Brendan Hopkins DO) Kidney stones Lumbar herniated disc Depression Allergic rhinitis GERD without esophagitis Chronic migraine Chronic pain syndrome DDD (degenerative disc disease) Cervical and Lumbar Surgical History (Updated 08/16/20 @ 17:35 by Marcello Ayon MD) History of bilateral carpal tunnel release Dr Lara Hx of left knee surgery left knee reconstruction -has 2 pins H/O cervical discectomy Hx of cholecystectomy Hx of hernia repair using mesh H/O neck surgery H/O foot surgery Family History (Updated 09/09/19 @ 12:08 by Asya Kwong LPN) Dementia Mother Brother Grandmother Family/Other Hypertension Mother Brother Grandmother Social History Smoking and tobacco/nicotine status: current every day tobacco/nicotine user cigarettes Packs smoked per day: 2 Years cigarettes smoked: 45 [ Other cigarette details: 1.5 PPD] Alcohol intake: current Alcohol intake frequency: holidays/special occasions only Substance/Drug Use: never Current gender identity: Male Pertinent Exam Findings alert, oriented x 3, operative site marked and procedure specific exam findings Please refer to detailed orthopedic examination on 02/21/2024 listed below: left shoulder exam Examination of the cervical spine reveals no pain with range of motion. A negative Spurlings test is noted. There is some tenderness over the trapezius muscle on the left. There is no scapular tenderness. There is no atrophy noted about the left shoulder. The left shoulder shows marked pain on range of motion, primarily abduction as well as forward flexion. There is pain on abduction against resistance, pain over the leading edge of the acromion. There is some pain near the AC joint on the left compared to the right. Positive crossover arm Neer's test, there is full internal and external rotation with 5/5 strength noted with the elbows at the side. There is pain with Jobes test and weakness noted. a positive two finger drop arm test. A positive Lujan impingement test is noted, positive Choctaw's, positive speeds test Recommendations Surgery/Procedure today Other Plans: Plan to proceed to the OR today for left shoulder diagnostic and surgical arthroscopy with rotator cuff debridement versus repair, AC joint resection, subacromial decompression, possible biceps tenodesis. Patient understands and Zetts procedure risk benefits complication alternatives surgery and through shared decision make elects proceed with surgical invention all questions answered at this time. Coding Level of Care Code Acute Code for Sabino Fwros
--- NOTE | 2024-04-12 09:31 | P.ANESASSM_ITS ---
Pre-Anesthetic Assessment Height/Weight: Height 5 ft 10 in Weight 180 lb Temp Pulse Resp BP Pulse Ox O2 Del Method 97.5 F L 88 16 125/87 96 Room Air 04/12/24 08:30 04/12/24 08:30 04/12/24 08:30 04/12/24 08:43 04/12/24 08:30 04/12/24 08:31 Preop Diagnosis: Left shoulder rotator cuff tear, AC joint arthritis, subacromial impingemen Operation Date: 04/12/24 09:55 Proposed Procedures p Shoulder Arthroscopy(Left) - Brendan Limestone, DO s Debridement versus Rotator Cuff Repair - Arthroscopy(Left) - Brendan Limestone, DO s AC Joint Resection(Left) - Brendan Limestone, DO s Subacromial Decompression(Left) - Brendan Limestone, DO s Bicep Tenodesis(Left) - Brendan Limestone, DO Last intake: Intake Last Liquid Date 04/12/24 Last Liquid Time 06:00 Last Solid Date 04/11/24 Last Solid Time 22:00 Social Tobacco Exam alert, oriented x 3, clear to auscultation bilaterally and regular rate & rhythm Airway Submandibular: within normal limits Cervical ROM: Other (Cervical fusion, decent neck mobility) Mallampati: Class II Dentition: false Anesthetic Plan ASA status: 2 Anesthesia: General Other: No prior issues with anesthesia NPO since midnight Current smoker, COPD controlled with inhalers Prior cervical fusion, takes chronic hydrocodone 4 times daily Patient denies any cardiac issues METs greater than 4 plan for general anesthesia with peripheral nerve block Medications/Allergies Home Medications Medication Instructions Recorded Confirmed Last Taken Type multivit with mi-ZC-[id number]-omega 1 cap PO DAILY 10/08/20 04/11/24 Unknown History 3,6,9 no.3 400 mcg-300 mcg capsule cyclobenzaprine 10 mg tablet 10 mg PO TID PRN muscle spasm 90 03/26/22 04/11/24 04/07/24 Rx days #270 tabs tizanidine 4 mg tablet 4 mg PO TID PRN muscle spasticity 05/05/23 04/11/24 0910/02 Rx 90 days #270 tabs lactobacillus combo no.11 15 1 cap PO DAILY #30 caps 07/19/23 04/11/24 Unknown Rx billion cell sprinkle capsule (Probiotic) loperamide 2 mg capsule (Imodium 2 mg PO Q4H PRN loose stool #30 07/19/23 04/11/24 Unknown Rx A-D) caps amitriptyline 25 mg tablet 25 mg PO .at bedtime 90 days #90 11/01/23 04/11/24 04/10/24 Rx tabs celecoxib 200 mg capsule 200 mg PO DAILY 90 days #90 caps 11/01/23 04/11/24 04/04/24 Rx montelukast 10 mg tablet 10 mg PO DAILY 90 days #90 tabs 11/01/23 04/11/24 04/11/24 Rx pantoprazole 40 mg tablet,delayed 40 mg PO BID 90 days #180 tabs 11/01/23 04/11/24 04/12/24 Rx release nnguybxqnk-ytggnixyazema-xszpofbk 1 cap PO QDAY PRN pain #14 caps 12/01/23 04/11/24 03/28/24 Rx 50 mg-300 mg-40 mg capsule (Fioricet) fluticasone propionate 50 See Rx Instructions .Route 12/08/23 04/11/24 Unknown Rx mcg/actuation nasal .COMPLEX #16 grams spray,suspension loratadine 10 mg tablet 10 mg PO DAILY 90 days #90 tabs 12/08/23 04/11/24 04/11/24 Rx sildenafil (pulm.hypertension) 20 20 mg PO DAILY PRN sexual activity 04/03/24 04/11/24 Unknown Rx mg tablet 30 days #30 tabs hydrocodone 10 mg-acetaminophen 1 tab PO TID PRN chronic pain 30 04/05/24 04/11/24 04/11/24 Rx 325 mg tablet days #90 tabs hydrocodone 5 mg-acetaminophen 325 1 tab PO Q6H PRN pain 5 days #20 04/12/24 Unknown Rx mg tablet tabs ondansetron 4 mg disintegrating 4 mg PO Q8H PRN nausea and 04/12/24 Unknown Rx tablet vomiting 3 days #9 tabs Allergies Allergy/AdvReac Type Severity Reaction Status Date / Time NSAIDS (Non-Steroidal Allergy acute Verified 03/02/24 14:03 Anti-Inflamma renal failure gabapentin AdvReac zonked Verified 03/02/24 14:03 out pregabalin [From Lyrica] AdvReac zonked Verified 03/02/24 14:03 out varenicline [From Chantix] AdvReac nightmares Verified 03/02/24 14:03 Current Medications Generic Name Dose Route Start Last Admin Trade Name Lewis PRN Reason Stop Dose Admin Sodium Chloride 1,000 mls @ 30 mls/hr 04/12/24 08:30 04/12/24 08:59 Sodium Chloride 0.9% IV 04/13/24 08:29 30 mls/hr .Q24H TERESO Administration PFSH Anesthesia Medical History Kidney stones Lumbar herniated disc Depression Allergic rhinitis GERD without esophagitis Chronic migraine Chronic pain syndrome DDD (degenerative disc disease) Cervical and Lumbar Surgical History History of bilateral carpal tunnel release Dr Lara Hx of left knee surgery left knee reconstruction -has 2 pins H/O cervical discectomy Hx of cholecystectomy Hx of hernia repair using mesh H/O neck surgery H/O foot surgery Family History Mother Hypertension Dementia Brother Hypertension Dementia Grandmother Hypertension Dementia Family/Other Dementia Social History Smoking and tobacco/nicotine status: current every day tobacco/nicotine user cigarettes Packs smoked per day: 2 Years cigarettes smoked: 45 [ Other cigarette details: 1.5 PPD] Alcohol intake: current Alcohol intake frequency: holidays/special occasions only Substance/Drug Use: never Current gender identity: Male Data Anesthesia Cardiac Studies: No Data to Display
--- NOTE | 2024-04-12 09:33 | ANES.PROC ---
Anesthesia Procedures Procedure/Date: 04/12/24 Nerve Block ^: Nerve Block 1: Main Anesthesia: other Time Out Performed: Yes Consent: requested by attending/covering physician and from patient Nerve block location: interscalene Anesthesia monitors applied: pulse oximetry, EKG, BP cuff and oxygen Nerve block position: supine Anesthetic Used: ropivicaine 0.5% Amount of anesthesia used (mL): 25 Ultrasound used to: recognize landmarks Nerve Stimulator Used?: Yes Interscalene/Femoral BLK: other needle (pjunk) Injection: neg aspiration of heme Patient Tolerated Procedure: well Complications: none Additional Comments: decadron 4mg
[2024-04-12] MEDS: ceFAZolin 2,000 MG in sodium chloride 0.9% (plus) 50 ML 100 MG IV (09:35)
[2024-04-12] MEDS: EPINEPHrine 1 mg/mL INJ 2 MG XX (10:16)
--- NOTE | 2024-04-12 11:30 | P.OP_ITS ---
Operative Report Date of procedure: April 12, 2024 Surgeon: Brendan Hopkins DO Final Assembly Worker: Nam Hopkins PA-C: PA was necessary for assistance in this case with shoulder positioning to execute the procedure, assistance with instrumentation, as well as implant fixation when necessary, assist with wound closure and dressing application. Procedure: Preoperative diagnosis: Left shoulder rotator cuff tear, AC joint arthritis, subacromial impingement, biceps tendinitis Post-op diagnosis:? Left shoulder glenohumeral joint chondromalacia, AC joint arthritis, subacromial bursitis, multiple loose bodies, rotator cuff tear, labral tear and biceps tendon tear. Procedure done: Left shoulder diagnostic and surgical arthroscopy with arthroscopic?rotator?cuff repair(small) Left shoulder diagnostic and surgical arthroscopy biceps tenodesis Left shoulder diagnostic and surgical arthroscopy with multiple loose body removal Left shoulder diagnostic and surgical arthroscopy with glenohumeral joint chondroplasty Left shoulder diagnostic and surgical arthroscopy labral debridement Left shoulder diagnostic and surgical arthroscopy acromioclavicular joint resection (distal clavicle excision) Left shoulder diagnostic and surgical arthroscopy subacromial decompression (acromioplasty and bursectomy) Surgeon: Brendan Hopkins DO Estimated blood loss: 10 mL IV fluids: See anesthesia record Implants: Arthrex 4.75 BC bicep tenodesis loop and tack system Arthrex suture tape Arthrex 4.75 swivel lock Complications: None Condition: stable Disposition: same day Brief History: Patient been seen and worked up in the outpatient setting for Left shoulder pain.? Pt had an MRI which showed findings below.? Patient's failed conservative treatment and has weakness.? We talked about treatment options far as nonoperative and operative intervention..? We talked about risk benefits complication alternatives surgical nonsurgical treatment options.? Understanding risk of surgery pt agrees to proceed with surgical intervention.? All questions have been answered at this time.? Patient elects proceed with surgery for left shoulder diagnostic and surgical arthroscopy with rotator cuff debridement versus repair, AC joint resection, subacromial decompression, possible biceps tenodesis. Consent obtained. MR/MR shoulder LT wo con* [id number] IMPRESSION: 1. Moderate degenerative arthritis AC joint with slight subacromial spurring. Subacromial and subdeltoid fluid. 2. High-grade intrasubstance and undersurface tears distal supraspinatus with chronic thinning. No tendon retraction 3. Intrasubstance with bursal surface and undersurface tears involving the distal infraspinatus extending to the insertion. Associated tendinopathy. 4. Biceps tendon appears intact within the bicipital groove. 5. Tendinopathy intra-articular biceps tendon. Procedure: Patient seen evaluated in the preoperative holding area.? Consent reviewed and signed with patient.? Once again reviewed patient's MRI results as well as? planned surgical intervention.? Correct extremity marked.? Patient seen evaluated by anesthesia department received regional anesthesia.? Once ready for surgery was taken back to the operative suite.? Patient then subsequently underwent anesthesia per the anesthesia department was transported onto the OR table.? Patient was then placed into a lateral decubitus position with a beanbag and was appropriately secured to the bed.? All bony prominences well-padded.? P atient then had the Left upper extremity was then prepped and draped in standard orthopedic fashion.? Patient received appropriate preoperative antibiotics.? Final timeout performed. The Left upper extremity was then held in hanging from traction utilizing sterile technique.? Next started with standard diagnostic and surgical arthroscopy with posterior portal position introduced arthroscope into the glenohumeral joint.? Visualized the glenohumeral joint I then introduced a spinal needle within the?rotator?cuff interval to confirm appropriate anterior portal placement.? Once this was confirmed I then made my small incision and then introduced my arthroscopic shaver into the glenohumeral joint.? Patient was immediately found to having numerous free-floating fragments of loose bodies of chondral pieces. I utilized arthroscopic shaver to perform debridement of the glenohumeral joint and excision/removal of multiple loose body fragments. After flushing the joint fluid, was clearly evident patient had significant biceps tendon tearing and inflammation as well as Superior labral tear. Patient had appreciable unstable biceps anchor most pronounced in the superior labrum. Given there appears to be healthy intra-articular tendon plan was for an intra- articular biceps tenodesis at the superior portion as it enters the intertubercular groove. Thermal wand introduced into the rotator interval. I then release of the rotator interval to have appropriate visualization and the ability to perform biceps tenodesis. At this point I established a purple passport cannula which was introduced. Next I performed an Arthrex loop and tack biceps tenodesis. There was significant fraying at the base of the superior labral insertion as result I utilized a probe to perform more of the intertubercular groove tendon within the joint which had more healthy appearing tendon I then utilized a spinal needle to pin the send appropriate placement was held by my malt specifications control assistant and then subsequently performed a biceps tenodesis on good intra-articular tendon tissue. Passer was then made around the tendon luggage tag stitch around and then thru the tendon per Arthrex protocol I then utilized a thermal wand to release the biceps tendon at the anchor to perform with tenotomy. I then loaded with suture onto an Arthrex 4.75 swivel lock suture anchor. A punch was then placed in appropriate position at the entry point into the intertubercular groove just superior to the subscapularis tendon. Punch was then introduced to the appropriate depth. The suture loaded on the swivel lock was then advanced held under appropriate tension and shoulder lock anchor was then advanced and had excellent fixation. Excess suture was then cut biceps tenodesis was complete. I then utilized a thermal wand to seal the edges of the superior labrum. Next I evaluated the subscapularis tendon which was intact and no evidence of tear. ?Next there was significant labral tearing at biceps anchor and circ umferential.? ? I then subsequently utilized a a arthroscopic shaver and thermal wand to perform a labral debridement.? This point time I then visualized the glenohumeral joint.? The glenohumeral joint was found to have grade 3? chondromalacia throughout.? Axillary pouch was had a small piece of floating cartilage which arthroscopic shaver was utilized to debride and remove all loose bodies. Of note patient did have grade III chondromalacia and I did utilize thermal wand and arthroscopic shaver to debride all unstable articular tissue to stable articular tissue as a result a chondroplasty was performed the glenohumeral joint. Next a visualized the?rotator?cuff superiorly and there was found to be a small undersurface tearing of the supraspinatus tendon.? I utilized a spinal needle to lizbet this location.? ?This completed my work within the glenohumeral joint all fluid was suctioned free of the joint.? ?Next I reintroduced the arthroscope posteriorly.? And went to the subacromial space.? I established my lateral working portal at the site of which my spinal needle was marking of the?rotator?cuff tear.? Thermal wand was then introduced laterally and then I subsequently performed extensive bursectomy of the subacromial space.? Patient had a large anterior bone spur.? At this point time I proceeded with my AC joint resection thermal wand was used and track to the anterior edge of the acromion and then tracked all the way to the AC joint.? Once identified the AC joint this was very arthritic in nature.? Thermal wand was placed anteriorly to establish appropriate plane for AC joint resection.? Once appropriate margins and anterior inferior and anterior capsule was released I then introduced arthroscopic shaver and a bur and performed AC joint resection of both the acromion to cope plane at the AC joint and a distal clavicle resection was then performed totaling 1 cm in size and was confirmed.? This completed my AC joint resection and I then introduced the arthroscopic shaver laterally while continuing to view posteriorly.? I then performed an acromioplasty to complete my subacromial decompression prior to fixing the?rotator?cuff tear.? Next the arthroscopic shaver was then used previous spinal needle spot that is marked the small hole in the?rotator?cuff this was consistent with a small full- thickness tear.? Given the small size this did not need a medial and lateral row configuration as result my plan was for a horizontal mattress stitch with a single lateral row anchor.? As result I loaded and Arthrex scorpion with fiber tape and subsequently.? A horizontal mattress purchase appropriately spaced to the small tear of the supraspinatus tendon.? At this point in time and then introduced a shaver to debride the?rotator?cuff footprint and decorticate the footprint in preparation for repair, next I marked by swivel lock position.? Fiber tape was then loaded into a 4.75 swivel lock I then subsequently punched and then subsequently placement 4.75 swivel lock while maintaining appropriate tension and repair of?rotator?cuff and this was advanced with excellent fixation I then had a final confirmation of appropriate repair of the supraspinatus?rotator?cuff tendon tear.? Sutures were then cut with an arthroscopic suture cutter and subsequently evaluated the?rotator?cuff repair.? Repair was found to be satisfactory shoulder was taken through range of motion and the repair moved as a unit with no evidence of loss of fixation. ?I then switched the arthroscope to the lateral portal to confirm this tension- free repair.? I took the shoulder through range of motion and the?rotator?cuff repair was stable and moved as a unit. ?Next I then introduced the arthroscopic shaver posteriorly to complete my subacromial decompression appropriate complaining all the way up to the lateral edge of the acromion.? This completed the surgery.? All fluid was suctioned from the shoulder.? All instruments were removed.? The lateral incision was then closed with nylon stitches.? As well as the portal sites closed with portal nylon stitches.? Xeroform 4 x 4's ABD and tape was then applied to the Left shoulder and was placed into a shoulder abduction pillow sling for?rotator?cuff repair.? Patient was then awakened from anesthesia and then taken back to PACU in stable condition.? Patient tolerated procedure without any issues. Disposition: Patient taken back in stable condition recovering well.? Dressings on in place clean dry and intact.? Will be nonweightbearing to the Left upper extremity.? Follow?rotator?cuff repair protocol.? Patient to follow-up with me in the office in 2 weeks.? Patient will receive appropriate discharge instruction as well as pain medication postoperatively.? All questions answered.? We will contact the office for any questions or concerns.
--- NOTE | 2024-04-12 11:35 | P.BOP_ITS ---
Date of Procedure: [April 12, 2024] Surgeon: [Dr. Hopkins DO] Property Management Intern(s): [Nam Hopkins PA-C] Procedure(s) performed: [Left shoulder diagnostic and surgical arthroscopy Multiple loose body removal Biceps tenodesis Labral debridement Glenohumeral joint chondroplasty AC joint resection Subacromial decompression rotator cuff repair (Small) ] Findings of the procedure(s): [Left shoulder humeral joint chondromalacia, AC joint arthritis, subacromial bursitis, multiple loose bodies, rotator cuff tear, labral tear and biceps tendon tear.] Estimated blood loss: [10 mL] Specimen(s) removed: [N/A] Post-operative diagnosis: [Left shoulder humeral joint chondromalacia, AC joint arthritis, subacromial bursitis, multiple loose bodies, rotator cuff tear, labral tear and biceps tendon tear.]
--- NOTE | 2024-04-12 11:43 | PM.PACU ---
PACU note Narrative: Patient is a 58-year-old male that just underwent a left shoulder diagnostic and surgical arthroscopy. Patient transferred to PACU in stable condition. Pain is well controlled. shoulder Dressing on , dry and in place. Patient's operative arm is in a shoulder immobilizer. Pt is somnolent and unarousable. Patient's fingers are warm with good perfusion. Normal cap refill under 2 seconds. Unable to assess further range of motion in arm due to sling. Unable to assess sensation due to residual localized anesthetic. Exam: unarousable Disposition: discharged
--- NOTE | 2024-04-12 11:55 | PC.NURSE ---
After arrival to PACU, monitor for vital signs did not capture vitals until 1154.
--- NOTE | 2024-04-12 13:58 | ANE.PACU2 ---
Inpatient post-anesthesia follow up: Airway intact: Yes Vital signs: Temperature 98 F Pulse Rate 66 Respiratory Rate 16 Blood Pressure 155/88 Pulse Oximetry 94 Oxygen Delivery Me thod Room Air Oxygen Flow Rate 3 Fraction of Inspir ed Oxygen Hydration adequate: Yes Nausea and vomiting: No Pain level: 1 Mental status: Baseline
== END 2024-04-12 14:04 | disposition home or self-care (01) ==
PROVIDERS: PCP Family Medicine; Visit Provider Student in an Organized Health Care Education/Training Program
PROC: (CPT 29805; principal; 2024-04-12 09:35)
PROC: 0LQ24ZZ Repair Left Shoulder Tendon, Percutaneous Endoscopic Approach (ICD-10-PCS; CPT 29827; 2024-04-12 09:35)
PROC: 0RSH0ZZ Reposition Left Acromioclavicular Joint, Open Approach (ICD-10-PCS; CPT 29823; 2024-04-12 09:35)
PROC: (CPT 29826; 2024-04-12 09:35)
PROC: (CPT 23430; 2024-04-12 09:35)
PROC: (CPT 29823; 2024-04-12 09:35)
PROC: (CPT 29823; 2024-04-12 09:35)
DX: M94.212 Chondromalacia, left shoulder (principal); M19.012 Primary osteoarthritis, left shoulder; M75.52 Bursitis of left shoulder; M24.012 Loose body in left shoulder; M75.102 Unspecified rotator cuff tear or rupture of left shoulder, not specified as traumatic; S46.112A Strain of muscle, fascia and tendon of long head of biceps, left arm, initial encounter; X58.XXXA Exposure to other specified factors, initial encounter; F17.210 Nicotine dependence, cigarettes, uncomplicated; J44.9 Chronic obstructive pulmonary disease, unspecified; Z98.1 Arthrodesis status
CPT/HCPCS: 29823; 29824; 29826; 29827; 29828; C1713; J0131; J0171; J0690; J1100; J2405; J2704; J3010; J3490; J7030

== ENCOUNTER → 2024-04-24 13:24 | Outpatient (BNVA) | payer MEDICARE, SELFPAY | PROVIDERS: PCP Family Medicine; Visit Provider Family Medicine | DX: Z13.1 Encounter for screening for diabetes mellitus (principal); Z13.6 Encounter for screening for cardiovascular disorders; Z13.220 Encounter for screening for lipoid disorders | CPT/HCPCS: 80053; 80061 ==

== ENCOUNTER → 2024-04-25 08:20 | Outpatient (BNVA) | payer MEDICARE, SELFPAY | PROVIDERS: PCP Family Medicine; Visit Provider Physician Assistant | DX: Z98.890 Other specified postprocedural states (principal) | CPT/HCPCS: 99024 ==

== ENCOUNTER → 2024-05-23 09:00 | Outpatient (BNVA) | payer MEDICARE, SELFPAY | PROVIDERS: PCP Family Medicine; Visit Provider Physician Assistant | DX: Z98.890 Other specified postprocedural states (principal) | CPT/HCPCS: 99024 ==

== ENCOUNTER 2024-05-31 06:00 | Outpatient (RCR) | payer MEDICARE, SELFPAY | END 2024-06-08 23:59 | disposition home or self-care (01) | LOC: SPT 06:00 | PROVIDERS: Visit Provider Physician Assistant | DX: Z98.890 Other specified postprocedural states (principal) | CPT/HCPCS: 97110; 97140; 97162 ==

== ENCOUNTER 2024-06-09 06:00 | Outpatient (RCR) | payer MEDICARE, SELFPAY | END 2024-07-08 23:59 | disposition home or self-care (01) | LOC: SPT 06:00 | PROVIDERS: Visit Provider Physician Assistant | DX: Z98.890 Other specified postprocedural states (principal) | CPT/HCPCS: 97110; 97140 ==

== ENCOUNTER → 2024-07-04 10:00 | Outpatient (BNVA) | payer MEDICARE, SELFPAY | PROVIDERS: PCP Family Medicine; Visit Provider Physician Assistant | DX: Z98.890 Other specified postprocedural states (principal) | CPT/HCPCS: 99213 ==

== ENCOUNTER 2024-07-09 06:00 | Outpatient (RCR) | payer MEDICARE, SELFPAY | END 2024-08-08 23:59 | disposition home or self-care (01) | LOC: SPT 06:00 | PROVIDERS: PCP Family Medicine; Visit Provider Physician Assistant | DX: Z47.89 Encounter for other orthopedic aftercare (principal) | CPT/HCPCS: 97110; 97140 ==

== ENCOUNTER → 2024-07-10 14:45 | Outpatient (BNVA) | payer MEDICARE, SELFPAY | PROVIDERS: PCP Family Medicine; Visit Provider Family Medicine | DX: R73.9 Hyperglycemia, unspecified (principal) | CPT/HCPCS: 80048; 83036 ==

== ENCOUNTER → 2024-07-25 12:56 | Outpatient (BNVA) | payer MEDICARE, SELFPAY | PROVIDERS: PCP Family Medicine; Visit Provider Student in an Organized Health Care Education/Training Program | DX: M25.532 Pain in left wrist (principal) | CPT/HCPCS: 20600; 20605; 73110; 99214; J3301; J3490 ==

== ENCOUNTER 2024-08-09 06:00 | Outpatient (RCR) | payer MEDICARE, SELFPAY | END 2024-08-17 23:59 | disposition home or self-care (01) | LOC: SPT 06:00 | PROVIDERS: PCP Family Medicine; Visit Provider Physician Assistant | DX: Z98.890 Other specified postprocedural states (principal) | CPT/HCPCS: 97110; 97140 ==

== ENCOUNTER → 2024-08-15 08:40 | Outpatient (BNVA) | payer MEDICARE, SELFPAY | PROVIDERS: PCP Family Medicine; Visit Provider Anesthesiology Pain Medicine | DX: M79.18 Myalgia, other site (principal); M54.2 Cervicalgia; G89.4 Chronic pain syndrome; Z79.891 Long term (current) use of opiate analgesic; F17.200 Nicotine dependence, unspecified, uncomplicated | CPT/HCPCS: 20553; 99214; J1010; J3490 ==

== ENCOUNTER → 2024-08-29 13:15 | Outpatient (BNVA) | payer MEDICARE, SELFPAY | PROVIDERS: PCP Family Medicine; Visit Provider Physician Assistant | DX: Z98.890 Other specified postprocedural states (principal) | CPT/HCPCS: 99213 ==

== ENCOUNTER → 2024-10-31 10:07 | Outpatient (BNVA) | payer MEDICARE, SELFPAY | PROVIDERS: PCP Family Medicine; Visit Provider Student in an Organized Health Care Education/Training Program | DX: M25.532 Pain in left wrist (principal) | CPT/HCPCS: 20600; 20610; 99213; J3301; J3490 ==

== ENCOUNTER → 2024-11-13 12:53 | Outpatient (BNVA) | payer MEDICARE, SELFPAY | PROVIDERS: PCP Family Medicine; Visit Provider Anesthesiology Pain Medicine | DX: M79.18 Myalgia, other site (principal); M54.2 Cervicalgia; M54.9 Dorsalgia, unspecified; G89.4 Chronic pain syndrome; Z79.891 Long term (current) use of opiate analgesic; F17.210 Nicotine dependence, cigarettes, uncomplicated | CPT/HCPCS: 20553; 99213; J1010; J3490 ==

== ENCOUNTER 2025-01-26 03:50 | Emergency (ER) | payer MEDICARE, SELFPAY ==
[2025-01-26 03:59] VITALS: BP 150/59; PULSE 80; RESP 18; O2SAT 94; BMI 27.2
--- NOTE | 2025-01-26 04:11 | XRR_ITS ---
PROCEDURE INFORMATION: Exam: XR Right Foot Exam date and time: 01/26/2025 4:19 AM Age: 59 years old Clinical indication: Injury or trauma; Fall; Blunt trauma; Foot; Right TECHNIQUE: Imaging protocol: Radiologic exam of the right foot. Views: 3 or more views. COMPARISON: No relevant prior studies available. FINDINGS: Bones/joints: No acute fracture. No dislocation. Normal bone mineralization. Small right ankle joint effusion. Joint spaces are maintained. Soft tissues: Marked soft tissue swelling over the right lateral malleolus. No soft tissue emphysema. No radiopaque foreign body. XR/XR foot RT min 3V* [id number] IMPRESSION: 1. No acute fracture of the right foot. Followup radiographs recommended in 7-14 days if clinical concern for fracture persists. 2. Small right ankle joint effusion. 3. Marked soft tissue swelling over the right lateral malleolus. 4. Incidental/nonacute findings are listed in the report.
--- NOTE | 2025-01-26 04:11 | XRR_ITS ---
PROCEDURE INFORMATION: Exam: XR Right Ankle Exam date and time: 01/26/2025 4:17 AM Age: 59 years old Clinical indication: Injury or trauma; Fall; Blunt trauma; Ankle; Right TECHNIQUE: Imaging protocol: Radiologic exam of the right ankle. Views: 3 or more views. COMPARISON: No relevant prior studies available. FINDINGS: Bones/joints: No acute fracture. No dislocation. Normal bone mineralization. Small right ankle joint effusion. Joint spaces are maintained. Small calcification inferior to the right medial malleolus, possibly due to sequela of remote trauma. Soft tissues: Marked soft tissue swelling over the right lateral malleolus. No soft tissue emphysema. No radiopaque foreign body. XR/XR ankle RT min 3V* [id number] IMPRESSION: 1. No acute fracture of the right ankle. Followup radiographs recommended in 7-14 days if clinical concern for fracture persists. 2. Small right ankle joint effusion. 3. Marked soft tissue swelling over the right lateral malleolus. 4. Incidental/nonacute findings are listed in the report.
--- NOTE | 2025-01-26 04:12 | ED_ITS ---
HPI - Extremity Problem General: Chief complaint: Extremity Injury, Lower Stated complaint: R ankle blood clots Time Seen by Provider: 01/26/25 04:05 History of Present Illness: Patient comes in with right ankle pain swelling and bruising. States that he sprained his ankle a couple of days ago. States that over the last 24 hours he has noticed significant bruising around his lower right leg, ankle, and down by his heel. He is concerned that he may have fractured something as this is similar when he fractured his ankle on the left. On physical exam he has swelling of his right ankle and right foot with bruising of his right lower leg, right ankle, and right foot. Will check x-ray, and reassess. Related Data Previous Rx's ?Medication ?Instructions ?Recorded lactobacillus combo no.11 15 1 cap PO DAILY #30 caps 1 09/19/22 billion cell sprinkle capsule (Probiotic) [id number]-[id number]-kvplgvah 1 cap PO QDAY PRN pa in #14 caps 12/01/23 50 mg-300 mg-40 mg capsule (Fioricet) diclofenac sodium 1 % topical gel 4 g topical QID #100 grams 07/25/24 (Voltaren Arthritis Pain) celecoxib 200 mg capsule 200 mg PO DAILY 90 days #90 caps 08/29/24 cyclobenzaprine 10 mg tablet 10 mg PO TID PRN muscle s pasm 90 10/23/24 days #270 tabs fluticasone propionate 50 See Rx Instructions .Route 0 10/23/24 mcg/actuation nasal .COMPLEX #16 grams spray,suspension loratadine 10 mg tablet 10 mg PO DAILY 90 days #90 t abs 10/23/24 montelukast 10 mg tablet 10 mg PO DAILY 90 days #90 t abs 10/23/24 pantoprazole 40 mg tablet,delayed 40 mg PO BID 90 days #180 tabs 10/23/24 release tizanidine 4 mg tablet 4 mg PO TID PRN muscle spast icity 10/23/24 90 days #270 tabs hydrocodone 5 mg-acetaminophen 325 1 tab PO BID pain 5 days #10 tabs 11/02/24 mg tablet albuterol sulfate 90 mcg/actuation 2 puff inhalation Q 6H PRN 11/15/24 aerosol inhaler (Ventolin HFA) shortness of breath or wheezing #8.5 grams doxycycline hyclate 100 mg capsule 100 mg PO BID #20 c aps 11/15/24 methylprednisolone 4 mg tablets in See Rx Instructions PO PER PKG DIR 11/15/24 a dose pack (Medrol (Sreedhar)) #21 ea Allergies Allergy/AdvReac Type Severity Reaction Status Date / Time NSAIDS (Non-Steroidal Allergy acute Verified 11/15/24 15:54 Anti-Inflamma renal failure gabapentin AdvReac zonked Verified 11/15/24 15:54 out pregabalin (From Lyrica) AdvReac zonked Verified 11/15/24 15:54 out varenicline (From Chantix) AdvReac nightmares Verified 11/15/24 15:54 Review of Systems Musc: Reports: joint swelling and other (Right ankle and foot swelling, and bruising) PFSH ED PFSH: Medical History Kidney stones Lumbar herniated disc Depression Allergic rhinitis GERD without esophagitis Chronic migraine Chronic pain syndrome DDD (degenerative disc disease) Cervical and Lumbar Surgical History History of bilateral carpal tunnel release Dr Lara Hx of left knee surgery left knee reconstruction -has 2 pins H/O cervical discectomy Hx of cholecystectomy Hx of hernia repair using mesh H/O neck surgery H/O foot surgery Family History Mother Hypertension Brother Hypertension Grandmother Hypertension Family/Other No problems noted. Social History Smoking and tobacco/nicotine status: current every day tobacco/nicotine user cigarettes Packs smoked per day: 2 Years cigarettes smoked: 45 [ Other cigarette details: 1.5 PPD] Alcohol intake: current Alcohol intake frequency: holidays/special occasions only Substance/Drug Use: current Substance/Drug use frequency: daily Current gender identity: Male Physical Exam Const: COMMON NORMALS: no acute distress and healthy appearing HENMT: COMMON NORMALS: normocephalic and atraumatic HEAD & SCALP: normocephalic and atraumatic Resp: COMMON NORMALS: normal respiratory effort, No retractions and No use of accessory muscles Extremity: NARRATIVE EXTREMITY EXAM: Swelling of the right ankle and right foot with bruising of his right lower leg, right ankle, and right foot Course Vital Signs: Vital signs: Vital Signs Pulse Rate 84 01/26/25 04:22 Respiratory Rate 18 01/26/25 03:59 Blood Pressure 150/59 01/26/25 04:22 Pulse Oximetry 96 01/26/25 04:22 Oxygen Delivery Me thod Room Air 01/26/25 04:22 MDM - Extremity (Nontraumatic) Medical Decision Making On reassessment and talked with the patient about the test results. His x-ray shows no acute bony abnormality. He does have a bony fragment in the medial aspect of his ankle. Will place him in an air splint, and have him follow-up with his orthopedic surgeon. Will discharge at this time with precautions to return for worsening or changing symptoms. Lab Data Radiology Impressions Ankle X-Ray 01/26/25 04:11 IMPRESSION: 1. No acute fracture of the right ankle. Followup radiographs recommended in 7-14 days if clinical concern for fracture persists. 2. Small right ankle joint effusion. 3. Marked soft tissue swelling over the right lateral malleolus. 4. Incidental/nonacute findings are listed in the report. Foot X-Ray 01/26/25 04:11 IMPRESSION: 1. No acute fracture of the right foot. Followup radiographs recommended in 7-14 days if clinical concern for fracture persists. 2. Small right ankle joint effusion. 3. Marked soft tissue swelling over the right lateral malleolus. 4. Incidental/nonacute findings are listed in the report. All radiology interpretation(s) finalized by discharge Discharge Plan Discharge Patient Disposition: Home Clinical Impression: Ankle sprain and strain Condition: Stable Prescriptions: No Action Probiotic 15 billion cell capsule, sprinkle 1 cap PO DAILY Qty: 30 0RF Rx Instructions: do not crush/chew/cut; swallow whole OR may open and sprinkle in cold drink/food [id number] [Fioricet] 50-300-40 mg capsule 1 cap PO QDAY PRN (Reason: pain) Qty: 14 1RF cyclobenzaprine 10 mg tablet 10 mg PO TID PRN (Reason: muscle spasm) 90 Days Qty: 270 1RF Rx Instructions: ALTERNATES WITH THE ZANAFLEX fluticasone propionate 50 mcg/actuation spray,suspension See Rx Instructions .ROUTE .COMPLEX Qty: 16 6RF Dose Instruction: Use 1 spray(s) in each nostril twice daily Rx Instructions: Use 1 spray(s) in each nostril twice daily montelukast 10 mg tablet 10 mg PO DAILY 90 Days Qty: 90 3RF pantoprazole 40 mg tablet,delayed release (DR/EC) 40 mg PO BID 90 Days Qty: 180 2RF tizanidine 4 mg tablet 4 mg PO TID PRN (Reason: muscle spasticity) 90 Days Qty: 270 1RF Rx Instructions: do not take with the cyclobenzeprine loratadine 10 mg tablet 10 mg PO DAILY 90 Days Qty: 90 2RF doxycycline hyclate 100 mg capsule 100 mg PO BID Qty: 20 0RF methylprednisolone [Medrol (Sreedhar)] 4 mg tablets,dose pack See Rx Instructions PO PER PKG DIR Qty: 21 0RF Rx Instructions: PO PER PKG DIR albuterol sulfate [Ventolin HFA] 90 mcg/actuation HFA aerosol inhaler 2 puff inhalation Q6H PRN (Reason: shortness of breath or wheezing) Qty: 8.5 0RF diclofenac sodium [Voltaren Arthritis Pain] 1 % gel 4 g topical QID Qty: 100 0RF Rx Instructions: apply to single knee, ankle, foot; for foot includes sole/toes/top of foot celecoxib 200 mg capsule 200 mg PO DAILY 90 Days Qty: 90 2RF Rx Instructions: with food hydrocodone-acetaminophen 5-325 mg tablet 1 tab PO BID 5 Days Qty: 10 0RF Discharge Orders: Discharge ED (Routine); Ordered 01/26/25 Ordered By: Narciso Medina Referrals: Henny Lara MD [Primary Care Provider, Family Practice] Patient Instructions: Ankle Sprain (ED) Print Language: Syrian Coding Level of Care Code ED Consulting [employer] Analyst for [employer]ino Pate
[2025-01-26 04:22] VITALS: BP 150/59; PULSE 84; O2SAT 96
[2025-01-26 06:03] VITALS: BP 134/70; PULSE 73; O2SAT 96
== END 2025-01-26 06:07 | disposition home or self-care (01) ==
PROVIDERS: Emergency Provider Emergency Medicine; PCP Family Medicine
DX: S93.401A Sprain of unspecified ligament of right ankle, initial encounter (principal); F17.210 Nicotine dependence, cigarettes, uncomplicated; X58.XXXA Exposure to other specified factors, initial encounter
CPT/HCPCS: 73610; 73630; 99283

== ENCOUNTER → 2025-01-31 12:44 | Outpatient (BNVA) | payer MEDICARE, SELFPAY | PROVIDERS: PCP Family Medicine; Visit Provider Podiatrist Foot & Ankle Surgery | DX: M25.571 Pain in right ankle and joints of right foot (principal); S93.421A Sprain of deltoid ligament of right ankle, initial encounter; X58.XXXA Exposure to other specified factors, initial encounter | CPT/HCPCS: 99203 ==

== ENCOUNTER → 2025-02-06 08:12 | Outpatient (BNVA) | payer MEDICARE, SELFPAY | PROVIDERS: PCP Family Medicine; Visit Provider Student in an Organized Health Care Education/Training Program | DX: M25.532 Pain in left wrist (principal) | CPT/HCPCS: 20600; 99213; J3301; J9999 ==

== ENCOUNTER → 2025-02-13 12:54 | Outpatient (BNVA) | payer MEDICARE, SELFPAY | PROVIDERS: PCP Family Medicine; Visit Provider Anesthesiology Pain Medicine | DX: M79.18 Myalgia, other site (principal); M54.2 Cervicalgia; M54.9 Dorsalgia, unspecified; G89.4 Chronic pain syndrome; Z79.891 Long term (current) use of opiate analgesic; F17.200 Nicotine dependence, unspecified, uncomplicated | CPT/HCPCS: 20553; 99213; J1010; J3490 ==

== ENCOUNTER → 2025-04-23 10:24 | Outpatient (BNVA) | payer MEDICARE, SELFPAY | PROVIDERS: PCP Family Medicine; Visit Provider Family Medicine | DX: J44.9 Chronic obstructive pulmonary disease, unspecified (principal); Z13.1 Encounter for screening for diabetes mellitus; Z13.6 Encounter for screening for cardiovascular disorders | CPT/HCPCS: 80053; 80061; 85025 ==

== ENCOUNTER → 2025-05-16 10:54 | Outpatient (BNVA) | payer MEDICARE, SELFPAY | PROVIDERS: PCP Family Medicine; Visit Provider Anesthesiology Pain Medicine | DX: M79.18 Myalgia, other site (principal); M18.12 Unilateral primary osteoarthritis of first carpometacarpal joint, left hand; M54.9 Dorsalgia, unspecified; M54.2 Cervicalgia; G89.4 Chronic pain syndrome; Z79.891 Long term (current) use of opiate analgesic; F17.200 Nicotine dependence, unspecified, uncomplicated | CPT/HCPCS: 20553; 20600; 20605; 99213; J1010; J3301; J3490 ==